=== PATIENT | male | born 1940 | race Caucasian/White ===

== ENCOUNTER → 2019-11-21 09:26 | Outpatient (BNVA) | payer MEDICARE, SELFPAY | PROVIDERS: Visit Provider Nurse Practitioner | DX: Z13.89 Encounter for screening for other disorder (principal) ==

== ENCOUNTER → 2019-12-24 07:54 | Outpatient (BNVA) | payer MEDICARE, SELFPAY | PROVIDERS: Visit Provider Internal Medicine Endocrinology, Diabetes & Metabolism | DX: E11.65 Type 2 diabetes mellitus with hyperglycemia (principal); E11.21 Type 2 diabetes mellitus with diabetic nephropathy; E11.42 Type 2 diabetes mellitus with diabetic polyneuropathy; E11.3599 Type 2 diabetes mellitus with proliferative diabetic retinopathy without macular edema, unspecified eye; Z79.4 Long term (current) use of insulin; E78.5 Hyperlipidemia, unspecified; E55.9 Vitamin D deficiency, unspecified; E03.9 Hypothyroidism, unspecified; E06.3 Autoimmune thyroiditis; I10 Essential (primary) hypertension; Z79.899 Other long term (current) drug therapy | CPT/HCPCS: 99212 ==

== ENCOUNTER 2019-12-26 09:51 | Outpatient (REF) | payer MEDICARE, SELFPAY ==
[2019-12-26 14:15] LABS: Hematocrit 36.3 % (42-52); Hemoglobin 12.2 g/dl (14.0-18.0); Mean Corpuscular HGB Conc 33.6 g/dl (31.0-36.0); Mean Corpuscular Hemoglobin 28.4 pg (27.0-33.0); Mean Corpuscular Volume 84.4 fL (80-98); Mean Platelet Volume 11.4 fL (9.4-12.4); Platelet Count 254 X10*3/uL (160-400); Red Cell Distribution Width 13.5 % (11.0-16.0); White Blood Count 6.7 X10*3/uL (4.8-10.8)
[2019-12-26 14:42] LABS: Alanine Aminotransferase < 6 U/L (0-40); Albumin Level 4.1 g/dL (3.5-5.0); Alkaline Phosphatase 70 U/L (39-117); Anion Gap 12 (12-20); Aspartate Amino Transferase 10 U/L (5-37); Bilirubin Total 0.2 mg/dL (0.0-1.0); Blood Urea Nitrogen 14 mg/dL (9-16); Calcium 9.1 mg/dL (8.4-10.2); Carbon Dioxide 30 mmol/L (22-29); Chloride 97 mmol/L (96-108); Cholesterol 113 mg/dL; Estimated Glomerular Filt Rate 40; Glucose Fasting 222 mg/dL (60-99); HDL Cholesterol 31 mg/dL; LDL Cholesterol Calculated 59 mg/dl; Sodium 134 mmol/L (135-145); Total Protein 7.3 g/dL (6.5-8.0); Triglycerides 115 mg/dL
[2019-12-26 14:52] LABS: Creatinine Urine 122.75 mg/dL; Microalbum/Creatinine Ratio Ur 40.7 ug/mg cr
[2019-12-26 15:09] LABS: Free T4 (Free Thyroxine) 1.06 ng/dL (0.71-1.85); Thyroid Stimulating Hormone 1.61 mIU/mL (0.32-4.0); Vitamin D 25-OH Total 29.8 ng/mL (>30)
[2019-12-26 15:29] LABS: Vitamin B12 290 pg/mL (200-900)
[2019-12-26 17:46] LABS: Estimated Average Glucose 335 mg/dL; Hemoglobin A1c % 13.3 %
[2019-12-27 07:47] LABS: LDL Cholesterol Direct 64 mg/dL (<100)
== END 2019-12-26 09:52 | disposition home or self-care (01) ==
LOC: HO.10HDL 09:51
PROVIDERS: Visit Provider Internal Medicine Endocrinology, Diabetes & Metabolism
DX: E11.65 Type 2 diabetes mellitus with hyperglycemia (principal)
CPT/HCPCS: 36415; 80053; 80061; 82043; 82306; 82607; 83036; 83721; 84439; 84443; 85027

== ENCOUNTER → 2020-03-25 09:10 | Outpatient (BNVA) | payer MEDICARE, SELFPAY | PROVIDERS: PCP Internal Medicine; Visit Provider Internal Medicine Endocrinology, Diabetes & Metabolism | DX: E11.65 Type 2 diabetes mellitus with hyperglycemia (principal); E11.42 Type 2 diabetes mellitus with diabetic polyneuropathy; Z79.4 Long term (current) use of insulin; E78.5 Hyperlipidemia, unspecified; E55.9 Vitamin D deficiency, unspecified; E03.8 Other specified hypothyroidism; E06.3 Autoimmune thyroiditis; I10 Essential (primary) hypertension | CPT/HCPCS: 82947; 99212 ==

== ENCOUNTER → 2020-04-21 07:39 | Outpatient (BNVA) | payer MEDICARE, SELFPAY | PROVIDERS: PCP Internal Medicine; Visit Provider Internal Medicine Endocrinology, Diabetes & Metabolism | DX: Z13.89 Encounter for screening for other disorder (principal) | CPT/HCPCS: Q3014 ==

== ENCOUNTER → 2020-07-24 08:48 | Outpatient (BNVA) | payer MEDICARE, SELFPAY | PROVIDERS: Visit Provider Orthopaedic Surgery | DX: M25.561 Pain in right knee (principal); M17.0 Bilateral primary osteoarthritis of knee; E11.65 Type 2 diabetes mellitus with hyperglycemia; E11.42 Type 2 diabetes mellitus with diabetic polyneuropathy; E66.9 Obesity, unspecified; E55.9 Vitamin D deficiency, unspecified; F10.10 Alcohol abuse, uncomplicated; F17.210 Nicotine dependence, cigarettes, uncomplicated; Z68.33 Body mass index [BMI] 33.0-33.9, adult; Z79.4 Long term (current) use of insulin | CPT/HCPCS: 20610; 99212; J1100 ==

== ENCOUNTER → 2020-08-12 10:58 | Outpatient (BNVA) | payer MEDICARE, SELFPAY | PROVIDERS: Visit Provider Internal Medicine Endocrinology, Diabetes & Metabolism | DX: E11.65 Type 2 diabetes mellitus with hyperglycemia (principal); E11.42 Type 2 diabetes mellitus with diabetic polyneuropathy; E78.5 Hyperlipidemia, unspecified; E55.9 Vitamin D deficiency, unspecified; E03.8 Other specified hypothyroidism; E06.3 Autoimmune thyroiditis; I10 Essential (primary) hypertension; Z79.4 Long term (current) use of insulin | CPT/HCPCS: 82947; 99212 ==

== ENCOUNTER → 2020-11-19 08:53 | Outpatient (BNVA) | payer MEDICARE, SELFPAY | PROVIDERS: PCP Internal Medicine; Visit Provider Nurse Practitioner Gerontology | DX: E11.65 Type 2 diabetes mellitus with hyperglycemia (principal); E11.42 Type 2 diabetes mellitus with diabetic polyneuropathy; E78.5 Hyperlipidemia, unspecified; E55.9 Vitamin D deficiency, unspecified; E03.8 Other specified hypothyroidism; E06.3 Autoimmune thyroiditis; I10 Essential (primary) hypertension; Z79.4 Long term (current) use of insulin | CPT/HCPCS: 82947; 83036; 99212 ==

== ENCOUNTER → 2021-02-22 11:01 | Outpatient (BNVA) | payer MEDICARE, SELFPAY | PROVIDERS: PCP Internal Medicine; Visit Provider Internal Medicine | DX: M54.50 Low back pain, unspecified (principal); G89.29 Other chronic pain | CPT/HCPCS: 99202 ==

== ENCOUNTER → 2021-06-08 09:40 | Outpatient (BNVA) | payer OTHER, SELFPAY | PROVIDERS: PCP Internal Medicine; Visit Provider Nurse Practitioner Gerontology | DX: E11.65 Type 2 diabetes mellitus with hyperglycemia (principal); E11.42 Type 2 diabetes mellitus with diabetic polyneuropathy; E78.5 Hyperlipidemia, unspecified; E55.9 Vitamin D deficiency, unspecified; E06.3 Autoimmune thyroiditis; E03.8 Other specified hypothyroidism; I10 Essential (primary) hypertension; Z79.4 Long term (current) use of insulin | CPT/HCPCS: 82947; 83036; Q3014 ==

== ENCOUNTER 2021-08-03 10:04 | Emergency (ER) | payer OTHER, SELFPAY ==
[2021-08-03] VITALS (12 sets, daily range): BP systolic 105–150; BP diastolic 52–80; PULSE 67–92; RESP 14–22; TEMP 36.6; O2SAT 88–98; BMI 31.6
--- NOTE | ~2021-08-03 | CT_ITS ---
EXAMINATION: CT BRAIN WITHOUT CONTRAST. CT ABDOMEN AND PELVIS WITHOUT CONTRAST. CLINICAL INFORMATION: Vomiting and constipation. AMS. COMPARISON: None TECHNIQUE: 5 mm thin axial and reformatted 2 mm thin sagittal and coronal images of brain were obtained. Subsequently axial 5 mm thin and reformatted 3 mm thin sagittal and coronal images of abdomen pelvis were obtained without contrast. DLP 1450. FINDINGS: Brain: There is no acute intra-axial, extra-axial bleed, masses or midline shift. There is no acute infarction evolution. The [place] to white matter difference is maintained. The lateral ventricles are symmetrical in size and configuration but enlarged. No abnormality seen in the posterior fossa. Bone windows reveal no calvarial abnormality. The scalp soft tissues are normal. Bilateral paranasal sinuses are well-aerated and clear. Abdomen and pelvis: The lung bases are clear. The heart size is normal. There are coronary artery calcifications present. Visualized liver is normal size, contour and density. No focal lesion or intrahepatic ductal dilatation seen. There are no radiopaque gallstones. Visualized spleen, pancreas and adrenal glands unremarkable. Both kidneys are normal size, shape and position. There is bilateral cortical exophytic renal cysts. No radiopaque renal calculi or hydronephrosis seen. There is mild bilateral perinephric stranding. The abdominal aorta is of normal caliber with mild arthroscopic calcification of the bifurcation. No abnormal size retroperitoneal lymph nodes or mass seen. There is a scattered stool, gas and diverticuli seen throughout the colon without diverticulitis. The appendix is normal caliber. Abdominal wall appears unremarkable. Imaging through the pelvis reveals unremarkable urinary bladder. The prostate gland is normal. No free fluid or free air seen. No abnormal pelvic lymph nodes. Bone windows reveal no lytic or sclerotic process. There is mild degenerative disc changes with vacuum disc phenomena L5-S1 disc level. Likely grade 1 anterior subluxation L5 over S1 is noted. CT/CT abdomen pelvis wo con IMPRESSION: No acute intracranial process seen No acute process seen in the abdomen. Scattered colonic diverticulosis without diverticulitis Bilateral exophytic renal cysts but no radiopaque renal calculi or hydronephrosis Suspect small hiatal hernia.
--- NOTE | ~2021-08-03 | XR_ITS ---
EXAMINATION: XR CHEST CLINICAL INFORMATION: AMS. COMPARISON: Chest 01/13/2014 TECHNIQUE: Frontal view of the chest was obtained. FINDINGS: No significant abnormality is noted involving the heart, lungs, mediastinum, bony thorax or soft tissues. XR/XR chest 1V IMPRESSION: Unremarkable chest examination.
--- NOTE | 2021-08-03 10:21 | ECG_ITS ---
Test Reason : n/v Blood Pressure : / mmHG Vent. Rate : 070 BPM Atrial Rate : 070 BPM P-R Int : 174 ms QRS Dur : 078 ms QT Int : 416 ms P-R-T Axes : 057 011 033 degrees QTc Int : 449 ms Normal sinus rhythm Normal ECG When compared to the previous EKG of No significant changes seen Referred By: Soheila Holland Electronically Signed By:Sterling Ruiz
--- NOTE | 2021-08-03 10:26 | ED_ITS ---
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 At the appointment he became unresponsive and was given IN narcan 4mg and he woke up immediately without issue now c/o vomiting. MD complaint: altered mental status, decreased responsiveness and intoxication (given narcan at [facility]) Onset (ago): minute(s) (just prior to arrival ) Timing confirmed by: caregiver Severity: moderate Consistency of symptoms: constant Context: COPD and other (takes oxycodone PRN as needed. ) Associated symptoms: nausea/vomiting Treatments prior to arrival: other (4mg IN narcan) Related Data Home Medications Medication Instructions Recorded Confirmed aspirin 81 mg tablet,delayed 81 mg PO BEDTIME 11/20/19 06/08/21 release atorvastatin 20 mg tablet 20 mg PO DAILY 11/20/19 06/08/21 blood pressure test kit-large #1 11/20/19 11/19/20 blood sugar diagnostic #10 ea 11/20/19 11/19/20 lancets 33 gauge #100 11/20/19 11/19/20 lisinopril 5 mg tablet 5 mg PO DAILY 11/20/19 06/08/21 pen needle, diabetic 31 gauge x #1,200 11/20/19 11/19/20 5/16 polyethylene glycol 3350 17 17 g PO DAILY PRN constipation 11/20/19 11/19/20 gram/dose oral powder sennosides 8.6 mg tablet 17.2 mg PO DAILY 11/20/19 02/22/21 simethicone 180 mg capsule 180 mg PO TID 11/20/19 02/22/21 umeclidinium 62.5 mcg/actuation 0 inh inhalation 11/20/19 11/19/20 blister powder for inhalation docusate sodium 100 mg capsule 100 mg PO 03/25/20 02/22/21 pregabalin 150 mg capsule 150 mg PO DAILY 03/25/20 02/22/21 dexlansoprazole 60 mg 60 mg PO DAILY 04/21/20 02/22/21 capsule,biphase delayed release fluoxetine 40 mg capsule 40 mg PO DAILY 04/21/20 02/22/21 fluticasone propionate 110 110 mcg inhalation BID 04/21/20 02/22/21 mcg/actuation HFA aerosol inhaler fluticasone propionate 50 2 spray intranasal DAILY PRN 04/21/20 02/22/21 mcg/actuation nasal spray,suspension diltiazem HCl 180 mg 180 mg PO DAILY 11/19/20 02/22/21 capsule,extended release 24 hr (Cartia XT) Previous Rx's Medication Instructions Recorded pen needle, diabetic 32 gauge x #200 ea 08/12/20 (BD Asuncion 2nd Gen Pen Needle) levothyroxine 112 mcg tablet 112 mcg PO DAILY 90 days #90 tabs 02/11/21 glucagon 3 mg/actuation nasal 3 mg intranasal ONCE unresponsive 06/08/21 spray (Baqsimi) hypoglycemia 30 days #2 ea insulin aspar prot-insulin aspart See Rx Instructions subcut BID 30 06/08/21 100 unit/mL (70-30) subcutaneous days #30 mL pen (Novolog Mix 70-30FlexPen U-100) cholecalciferol (vitamin D3) 50 50 mcg PO DAILY 90 days #90 caps 06/28/21 mcg (2,000 unit) capsule linagliptin 5 mg tablet 5 mg PO DAILY 90 days #90 tabs 07/30/21 Allergies Allergy/AdvReac Type Severity Reaction Status Date / Time No Known Allergies Allergy Verified 06/08/21 10:15 Review of Systems Review of Systems: Constitutional : No Weight loss, No Fever, No Chills ENT/Mouth : No sore throat, No Rhinorrhea Eyes: No Swelling, No Redness Cardiovascular : No Chest Pain, No SOB, NoEdema Respiratory : No Cough, No Sputum, No Wheezing Gastrointestinal : Positive Nausea, Positive Vomiting, no Diarrhea, positive abdominal Pain, No Hematochezia, No Melena Genitourinary : No Dysuria, No Urinary Frequency, No Hematuria, No Urgency Musculoskeletal : No joint pain, No Myalgias, No Joint Swelling, pos back pain Skin : No Skin Lesions, No rash Neuro : No Weakness, No Numbness, No Dizziness, No Headache, pos confusion Psych : No Anxiety/Panic, No Depression Heme/Lymph: No Bruising, No Lymphadenopathy Endocrine : No Polyuria, No Polydipsia All other systems reviewed and are negative. [facility] Past Medical History Attestation statement: The following information was validated with the patient. Medical History Alcohol abuse CKD (chronic kidney disease) stage 3, GFR 30-59 ml/min COPD (chronic obstructive pulmonary disease) Diabetes type 2, uncontrolled History of Helicobacter pylori infection HTN (hypertension) IBS (irritable bowel syndrome) Internal hemorrhoid Surgical History Hx of colonoscopy (03/2013) Hx of cystoscopy (~2006) Hx of right cataract extraction Family History Family History Father No problems noted. 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 Physical Exam ED Vital Signs: Vital Signs - 24 hr 08/03/21 10:27 08/03/21 10:50 08/03/21 11:45 Temperature Pulse Rate 79 78 72 Respiratory Rate 18 22 H 18 Blood Pressure 149/70 H 137/63 105/80 Pulse Oximetry 94 98 92 Oxygen Delivery Method Room Air Room Air Room Air Oxygen Flow Rate 08/03/21 12:09 08/03/21 12:42 08/03/21 12:51 Temperature Pulse Rate 68 67 75 Respiratory Rate 20 14 19 Blood Pressure 130/63 Pulse Oximetry 88 L Oxygen Delivery Method Room Air Oxygen Flow Rate 08/03/21 13:16 08/03/21 15:38 08/03/21 15:52 Temperature 97.9 F Pulse Rate 84 85 84 Respiratory Rate 14 16 16 Blood Pressure 124/61 110/52 L 124/63 Pulse Oximetry 88 L 95 94 Oxygen Delivery Method Room Air Nasal Cannula Room Air Oxygen Flow Rate 2 BMI result Body Mass Index 31.6 Appearance: Alert. Oriented X2. No acute distress. Eyes: Pupils pinpoint ENT: Pharynx normal. Neck: Normal inspection. Neck supple. CVS: Normal heart rate and rhythm. Pulses normal. Respiratory: No respiratory distress. Breath sounds very diminished Abdomen: Soft and non-tender. Skin: Skin warm and dry. Normal skin color. Normal skin turgor. Extremities: No lower extremity edema. Neuro: Oriented X 2. No motor deficit. No sensory deficit. Course Course Course Narrative: CT abdomen - no acute process, mild constipation CT head - no ICH CXR negative 89% on RA, very sleepy, repeat neb ordered - narcan 0.4mg ordered as well placed on supplemental O2 - ABG ordered review of notes shows that patient did see pain management but stated they would not fill Rx for him as he broke pain contract in the past pH normal - no retention. pinpoint pupils repeat 1mg narcan ordered, tox negative, head CT negative, patient looks better, eating a sandwhich and drinking coffee will continue to observe if he does well the next 2 hours stable for DC MDM - Altered Mental Status MDM Narrative Medical decision making narrative: 81 yo male with hx of DM, COPD, hypothyroidism, asthma, constipation, chronic back pain for which he is Rx'd daily PRN oxycodone 5mg BID and suspected overdos e at [facility] for which he responded to IN narcan - he is now confused with vomiting. At this time he is confused and has pinpoint pupils - will obtain labs, CT head for ICH, CT abdomen given c/o abdominal pain, drug screen and observation. He is very diminished neb ordered. Dispo per results and findings. Lab Data Result diagrams: 08/03/21 10:54 08/03/21 10:54 Labs: Lab Results 08/03/21 08/03/21 08/03/21 Range/Units 10:46 10:49 10:54 WBC (4.8-10.8) X10*3/uL RBC (4.60-5.80) X10*6/uL Hgb (14.0-18.0) g/dl Hct (42.0-52.0) % MCV (80.0-98.0) fL MCH (27.0-33.0) pg MCHC (31.0-36.0) g/dl RDW (11.0-16.0) % Plt Count (160-400) X10*3/uL MPV (9.4-12.4) fL Immature Gran % (Auto) (0.0-0.4) % Neut % (Auto) (45-73) % Lymph % (Auto) (20-40) % [place] % (Auto) (2-11) % Eos % (Auto) (0-4) % Baso % (Auto) (0-2) % Lymph # (Auto) (1.2-4.9) X10*3/uL [place] # (Auto) (0.1-1.2) X10*3/uL Eos # (Auto) (0.0-0.4) X10*3/uL Baso # (Auto) (0.0-0.2) X10*3/uL Abs Immat Gran (auto) (0.00-0.03) X10*3/uL Absolute Neuts (auto) (2.0-8.3) x10*3/uL Absolute Nucleated RBC (0.0-0.012) X10*3/uL Nucleated RBC % (auto) (0.0-0.2) /100WBC PT (9.9-13.0) SEC INR (0.9-1.1) O2 Saturation % ABG pH at Pt Temp (7.35-7.45) ABG pCO2 at Pt Temp (32-45) mmHg ABG pO2 at Pt Temp (83-108) mmHg ABG HCO3 (22-26) mmol/L ABG Base Excess (Actual) mmol/L VBG pH (7.32-7.43) VBG pCO2 mmHg VBG pO2 mmHg VBG HCO3 (22-26) mmol/L VBG O2 Saturation % VBG Base Excess mmol/L Sodium (135-145) mmol/L Potassium (3.3-5.1) mmol/L Chloride (96-108) mmol/L Carbon Dioxide (22-29) mmol/L Anion Gap (12-20) BUN (9-16) mg/dL Creatinine (0.5-1.4) mg/dL Estim Creat Clear Calc Estimated GFR POC Glucose 229 H (60-115) mg/dL Random Glucose (60-115) mg/dL Calcium (8.4-10.2) mg/dL Magnesium (1.6-2.6) mg/dL Total Bilirubin (0.0-1.0) mg/dL Direct Bilirubin (0.0-0.5) mg/dL AST (5-37) U/L ALT (0-40) U/L Alkaline Phosphatase (39-117) U/L Ammonia 14 (13-55) umol/L Total Protein (6.5-8.0) g/dL Albumin (3.5-5.0) g/dL Urine Color Urine Appearance Urine pH (5.0-8.0) Ur Specific [place] (1.005-1.025) Urine Protein (NEG-TRACE) MG/DL Urine Glucose (UA) (NEG) MG/DL Urine Ketones (NEG) MG/DL Urine Blood (NEG) Urine Nitrite (NEG) Ur Leukocyte Esterase (NEG) Urine RBC (0) /HPF Urine WBC (0-4) /HPF Ur Squamous Epith Cells /LPF Urine Bacteria /LPF Urine Mucus /LPF Urine Opiates Screen (Not Detect) Urine Fentanyl Screen (Not Detect) Ur Barbiturates Screen (Not Detect) Ur Phencyclidine Scrn (Not Detect) Ur Amphetamines Screen (Not Detect) U Benzodiazepines Scrn (Not Detect) Urine Cocaine Screen (Not Detect) U Marijuana (THC) Screen (Not Detect) COVID-19 (JAMEEL) Negative (Negative) COVID-19 Clin Com See Note 08/03/21 08/03/21 08/03/21 Range/Units 10:54 10:54 10:54 WBC 10.5 (4.8-10.8) X10*3/uL RBC 4.20 L (4.60-5.80) X10*6/uL Hgb 11.6 L (14.0-18.0) g/dl Hct 35.5 L (42.0-52.0) % MCV 84.5 (80.0-98.0) fL MCH 27.6 (27.0-33.0) pg MCHC 32.7 (31.0-36.0) g/dl RDW 14.2 (11.0-16.0) % Plt Count 239 (160-400) X10*3/uL MPV 10.5 (9.4-12.4) fL Immature Gran % (Auto) 0.3 (0.0-0.4) % Neut % (Auto) 61.3 (45-73) % Lymph % (Auto) 29.7 (20-40) % [place] % (Auto) 6.5 (2-11) % Eos % (Auto) 1.3 (0-4) % Baso % (Auto) 0.9 (0-2) % Lymph # (Auto) 3.1 (1.2-4.9) X10*3/uL [place] # (Auto) 0.7 (0.1-1.2) X10*3/uL Eos # (Auto) 0.1 (0.0-0.4) X10*3/uL Baso # (Auto) 0.1 (0.0-0.2) X10*3/uL Abs Immat Gran (auto) 0.03 (0.00-0.03) X10*3/uL Absolute Neuts (auto) 6.5 (2.0-8.3) x10*3/uL Absolute Nucleated RBC 0.000 (0.0-0.012) X10*3/uL Nucleated RBC % (auto) 0.0 (0.0-0.2) /100WBC PT 11.6 (9.9-13.0) SEC INR 1.0 (0.9-1.1) O2 Saturation % ABG pH at Pt Temp (7.35-7.45) ABG pCO2 at Pt Temp (32-45) mmHg ABG pO2 at Pt Temp (83-108) mmHg ABG HCO3 (22-26) mmol/L ABG Base Excess (Actual) mmol/L VBG pH (7.32-7.43) VBG pCO2 mmHg VBG pO2 mmHg VBG HCO3 (22-26) mmol/L VBG O2 Saturation % VBG Base Excess mmol/L Sodium 137 (135-145) mmol/L Potassium 4.7 (3.3-5.1) mmol/L Chloride 101 (96-108) mmol/L Carbon Dioxide 26 (22-29) mmol/L Anion Gap 15 (12-20) BUN 18 H (9-16) mg/dL Creatinine 1.99 H (0.5-1.4) mg/dL Estim Creat Clear Calc 30.4 Estimated GFR 32 POC Glucose (60-115) mg/dL Random Glucose 244 H (60-115) mg/dL Calcium 10.1 D (8.4-10.2) mg/dL Magnesium 1.9 (1.6-2.6) mg/dL Total Bilirubin 0.2 (0.0-1.0) mg/dL Direct Bilirubin < 0.2 (0.0-0.5) mg/dL AST 10 (5-37) U/L ALT < 6 (0-40) U/L Alkaline Phosphatase 88 D (39-117) U/L Ammonia (13-55) umol/L Total Protein 8.2 H (6.5-8.0) g/dL Albumin 4.6 (3.5-5.0) g/dL Urine Color Urine Appearance Urine pH (5.0-8.0) Ur Specific [place] (1.005-1.025) Urine Protein (NEG-TRACE) MG/DL Urine Glucose (UA) (NEG) MG/DL Urine Ketones (NEG) MG/DL Urine Blood (NEG) Urine Nitrite (NEG) Ur Leukocyte Esterase (NEG) Urine RBC (0) /HPF Urine WBC (0-4) /HPF Ur Squamous Epith Cells /LPF Urine Bacteria /LPF Urine Mucus /LPF Urine Opiates Screen (Not Detect) Urine Fentanyl Screen (Not Detect) Ur Barbiturates Screen (Not Detect) Ur Phencyclidine Scrn (Not Detect) Ur Amphetamines Screen (Not Detect) U Benzodiazepines Scrn (Not Detect) Urine Cocaine Screen (Not Detect) U Marijuana (THC) Screen (Not Detect) COVID-19 (JAMEEL) (Negative) COVID-19 Clin Com 08/03/21 08/03/21 08/03/21 Range/Units 10:57 13:34 14:25 WBC (4.8-10.8) X10*3/uL RBC (4.60-5.80) X10*6/uL Hgb (14.0-18.0) g/dl Hct (42.0-52.0) % MCV (80.0-98.0) fL MCH (27.0-33.0) pg MCHC (31.0-36.0) g/dl RDW (11.0-16.0) % Plt Count (160-400) X10*3/uL MPV (9.4-12.4) fL Immature Gran % (Auto) (0.0-0.4) % Neut % (Auto) (45-73) % Lymph % (Auto) (20-40) % [place] % (Auto) (2-11) % Eos % (Auto) (0-4) % Baso % (Auto) (0-2) % Lymph # (Auto) (1.2-4.9) X10*3/uL [place] # (Auto) (0.1-1.2) X10*3/uL Eos # (Auto) (0.0-0.4) X10*3/uL Baso # (Auto) (0.0-0.2) X10*3/uL Abs Immat Gran (auto) (0.00-0.03) X10*3/uL Absolute Neuts (auto) (2.0-8.3) x10*3/uL Absolute Nucleated RBC (0.0-0.012) X10*3/uL Nucleated RBC % (auto) (0.0-0.2) /100WBC PT (9.9-13.0) SEC INR (0.9-1.1) O2 Saturation 92.0 % ABG pH at Pt Temp 7.37 (7.35-7.45) ABG pCO2 at Pt Temp 27 L (32-45) mmHg ABG pO2 at Pt Temp 71 L (83-108) mmHg ABG HCO3 16 L (22-26) mmol/L ABG Base Excess (Actual) -7.1 mmol/L VBG pH 7.26 L (7.32-7.43) VBG pCO2 53 mmHg VBG pO2 36 mmHg VBG HCO3 24 (22-26) mmol/L VBG O2 Saturation 50.0 % VBG Base Excess -2.9 mmol/L Sodium (135-145) mmol/L Potassium (3.3-5.1) mmol/L Chloride (96-108) mmol/L Carbon Dioxide (22-29) mmol/L Anion Gap (12-20) BUN (9-16) mg/dL Creatinine (0.5-1.4) mg/dL Estim Creat Clear Calc Estimated GFR POC Glucose (60-115) mg/dL Random Glucose (60-115) mg/dL Calcium (8.4-10.2) mg/dL Magnesium (1.6-2.6) mg/dL Total Bilirubin (0.0-1.0) mg/dL Direct Bilirubin (0.0-0.5) mg/dL AST (5-37) U/L ALT (0-40) U/L Alkaline Phosphatase (39-117) U/L Ammonia (13-55) umol/L Total Protein (6.5-8.0) g/dL Albumin (3.5-5.0) g/dL Urine Color YELLOW Urine Appearance HAZY Urine pH 5.5 (5.0-8.0) Ur Specific [place] 1.025 (1.005-1.025) Urine Protein TRACE (NEG-TRACE) MG/DL Urine Glucose (UA) >=1000 H (NEG) MG/DL Urine Ketones NEG (NEG) MG/DL Urine Blood NEG (NEG) Urine Nitrite NEG (NEG) Ur Leukocyte Esterase NEG (NEG) Urine RBC 0-2 (0) /HPF Urine WBC 0-2 (0-4) /HPF Ur Squamous Epith Cells 1+ /LPF Urine Bacteria NONE /LPF Urine Mucus TRACE /LPF Urine Opiates Screen (Not Detect) Urine Fentanyl Screen (Not Detect) Ur Barbiturates Screen (Not Detect) Ur Phencyclidine Scrn (Not Detect) Ur Amphetamines Screen (Not Detect) U Benzodiazepines Scrn (Not Detect) Urine Cocaine Screen (Not Detect) U Marijuana (THC) Screen (Not Detect) COVID-19 (JAMEEL) (Negative) COVID-19 Clin Com 08/03/21 Range/Units 14:25 WBC (4.8-10.8) X10*3/uL RBC (4.60-5.80) X10*6/uL Hgb (14.0-18.0) g/dl Hct (42.0-52.0) % MCV (80.0-98.0) fL MCH (27.0-33.0) pg MCHC (31.0-36.0) g/dl RDW (11.0-16.0) % Plt Count (160-400) X10*3/uL MPV (9.4-12.4) fL Immature Gran % (Auto) (0.0-0.4) % Neut % (Auto) (45-73) % Lymph % (Auto) (20-40) % [place] % (Auto) (2-11) % Eos % (Auto) (0-4) % Baso % (Auto) (0-2) % Lymph # (Auto) (1.2-4.9) X10*3/uL [place] # (Auto) (0.1-1.2) X10*3/uL Eos # (Auto) (0.0-0.4) X10*3/uL Baso # (Auto) (0.0-0.2) X10*3/uL Abs Immat Gran (auto) (0.00-0.03) X10*3/uL Absolute Neuts (auto) (2.0-8.3) x10*3/uL Absolute Nucleated RBC (0.0-0.012) X10*3/uL Nucleated RBC % (auto) (0.0-0.2) /100WBC PT (9.9-13.0) SEC INR (0.9-1.1) O2 Saturation % ABG pH at Pt Temp (7.35-7.45) ABG pCO2 at Pt Temp (32-45) mmHg ABG pO2 at Pt Temp (83-108) mmHg ABG HCO3 (22-26) mmol/L ABG Base Excess (Actual) mmol/L VBG pH (7.32-7.43) VBG pCO2 mmHg VBG pO2 mmHg VBG HCO3 (22-26) mmol/L VBG O2 Saturation % VBG Base Excess mmol/L Sodium (135-145) mmol/L Potassium (3.3-5.1) mmol/L Chloride (96-108) mmol/L Carbon Dioxide (22-29) mmol/L Anion Gap (12-20) BUN (9-16) mg/dL Creatinine (0.5-1.4) mg/dL Estim Creat Clear Calc Estimated GFR POC Glucose (60-115) mg/dL Random Glucose (60-115) mg/dL Calcium (8.4-10.2) mg/dL Magnesium (1.6-2.6) mg/dL Total Bilirubin (0.0-1.0) mg/dL Direct Bilirubin (0.0-0.5) mg/dL AST (5-37) U/L ALT (0-40) U/L Alkaline Phosphatase (39-117) U/L Ammonia (13-55) umol/L Total Protein (6.5-8.0) g/dL Albumin (3.5-5.0) g/dL Urine Color Urine Appearance Urine pH (5.0-8.0) Ur Specific [place] (1.005-1.025) Urine Protein (NEG-TRACE) MG/DL Urine Glucose (UA) (NEG) MG/DL Urine Ketones (NEG) MG/DL Urine Blood (NEG) Urine Nitrite (NEG) Ur Leukocyte Esterase (NEG) Urine RBC (0) /HPF Urine WBC (0-4) /HPF Ur Squamous Epith Cells /LPF Urine Bacteria /LPF Urine Mucus /LPF Urine Opiates Screen Not Detected (Not Detect) Urine Fentanyl Screen Not Detected (Not Detect) Ur Barbiturates Screen Not Detected (Not Detect) Ur Phencyclidine Scrn Not Detected (Not Detect) Ur Amphetamines Screen Not Detected (Not Detect) U Benzodiazepines Scrn Not Detected (Not Detect) Urine Cocaine Screen Not Detected (Not Detect) U Marijuana (THC) Screen Not Detected (Not Detect) COVID-19 (JAMEEL) (Negative) COVID-19 Clin Com ECG Data ECG #1: Attestation: I personally reviewed and interpreted this ECG as follows: ECG interpretation date: 08/03/21 ECG interpretation time: 10:43 Interpretation: Rate: 70 Rhythm: NSR [place]: normal Normal P waves. Normal SHARMIN. Normal QRS complex. ST T wave : non-specificl no GAURI qTC: normal prior studies: no acute ischemia The study has been interpreted contemporaneously by me. Discharge Plan Discharge Clinical Impression: Overdose, COPD (chronic obstructive pulmonary disease) Patient Disposition: Still a Patient Prescriptions: No Action levothyroxine 112 mcg tablet 112 mcg PO DAILY 90 Days Qty: 90 3RF cholecalciferol (vitamin D3) 50 mcg (2,000 unit) capsule 50 mcg PO DAILY 90 Days Qty: 90 2RF linagliptin 5 mg tablet 5 mg PO DAILY 90 Days Qty: 90 2RF Rx Instructions: NO MORE REFILLS UNLESS APPOINTMENT SCHEDULED diltiazem HCl [Cartia XT] 180 mg capsule,extended release 24hr 180 mg PO DAILY Incruse Ellipta 62.5 mcg/actuation blister with device 0 inh inhalation (DME) lancets 33 gauge misc See Rx Instructions .ROUTE .MEDSUPPLY Qty: 100 Rx Instructions: As directed aspirin 81 mg tablet,delayed release (DR/EC) 81 mg PO BEDTIME (DME) pen needle, diabetic 31 gauge x 5/16 needle See Rx Instructions .ROUTE .MEDSUPPLY Qty: 1200 Rx Instructions: As directed lisinopril 5 mg tablet 5 mg PO DAILY (DME) FreeStyle Lite Strips Strip See Rx Instructions Not Applicable .MEDSUPPLY Qty: 10 Rx Instructions: As directed sennosides 8.6 mg tablet 17.2 mg PO DAILY (DME) blood pressure test kit-large Kit See Rx Instructions .ROUTE DIRECTED Qty: 1 Rx Instructions: As directed polyethylene glycol 3350 17 gram/dose powder 17 g PO DAILY PRN (Reason: constipation) atorvastatin 20 mg tablet 20 mg PO DAILY simethicone 180 mg capsule 180 mg PO TID docusate sodium 100 mg capsule 100 mg PO pregabalin 150 mg capsule 150 mg PO DAILY dexlansoprazole 60 mg capsule,biphase delayed releas 60 mg PO DAILY fluoxetine 40 mg capsule 40 mg PO DAILY fluticasone propionate 110 mcg/actuation HFA aerosol inhaler 110 mcg inhalation BID fluticasone propionate 50 mcg/actuation spray,suspension 2 spray intranasal DAILY PRN (DME) pen needle, diabetic [BD Asuncion 2nd Gen Pen Needle] 32 gauge x 5/32 needle See Rx Instructions .MEDSUPPLY Qty: 200 4RF Rx Instructions: twice a day insulin asp prt-insulin aspart [Novolog Mix 70-30FlexPen U-100] 100 unit/mL (70-30) insulin pen See Rx Instructions subcut BID 30 Days Qty: 30 6RF Rx Instructions: 60 units before breakfast, 30 units before dinner subcut 2 times a day; Baqsimi 3 mg/actuation spray,non-aerosol 3 mg intranasal ONCE 30 Days Qty: 2 6RF Rx Instructions: Murray once for severe hypoglycemia when patient cannot self-treat with glucose. Afterwards turn on side. May repeat after 15 minutes if patient does not respond.
--- NOTE | 2021-08-03 10:45 | PC.NURSE ---
pt vomiting at this time, also is reporting upper abd pain, pt alert but appears drowsy is slow in answering questions, pupils pinpoint, ls diminished on the left side but also pt not taking good breaths in during assessments, oxygen level will flocculate from 91-97% on room air, pt color is ashen in appearance.
[2021-08-03] MEDS: ondansetron HCL 4 MG/2 ML VIAL IVPUSH (10:46)
[2021-08-03 10:50] LABS: Glucose, Whole Blood 229 mg/dL (60-115)
[2021-08-03 10:59] LABS: MANUAL DIFF FLAG NO
[2021-08-03 11:01] LABS: Basophils Absolute Auto 0.1 X10*3/uL (0.0-0.2); Basophils Percent Auto 0.9 % (0-2); Eosinophils Absolute Auto 0.1 X10*3/uL (0.0-0.4); Eosinophils Percent Auto 1.3 % (0-4); Hematocrit 35.5 % (42.0-52.0); Hemoglobin 11.6 g/dl (14.0-18.0); Imm Gran Abs Auto 0.03 X10*3/uL (0.00-0.03); Imm Gran Pct Auto 0.3 % (0.0-0.4); Lymphocytes Absolute Auto 3.1 X10*3/uL (1.2-4.9); Lymphocytes Percent Auto 29.7 % (20-40); Mean Corpuscular HGB Conc 32.7 g/dl (31.0-36.0); Mean Corpuscular Hemoglobin 27.6 pg (27.0-33.0); Mean Corpuscular Volume 84.5 fL (80.0-98.0); Mean Platelet Volume 10.5 fL (9.4-12.4); Monocytes Absolute Auto 0.7 X10*3/uL (0.1-1.2); Monocytes Percent Auto 6.5 % (2-11); Neutrophils Absolute Auto 6.5 x10*3/uL (2.0-8.3); Neutrophils Percent Auto 61.3 % (45-73); Platelet Count 239 X10*3/uL (160-400); Red Cell Distribution Width 14.2 % (11.0-16.0); White Blood Count 10.5 X10*3/uL (4.8-10.8)
[2021-08-03 11:02] LABS: Venous Blood Gas Refer to POC result
[2021-08-03 11:02] LABS: VBG Base Excess -2.9 mmol/L; VBG HCO3 24 mmol/L (22-26); VBG pCO2 53 mmHg; VBG pH 7.26 (7.32-7.43); VBG pO2 36 mmHg
[2021-08-03 11:06] LABS: Prothrombin Time 11.6 SEC (9.9-13.0)
[2021-08-03 11:15] LABS: Ammonia 14 umol/L (13-55)
[2021-08-03 11:18] LABS: COVID-19 Test Negative (Negative); IDNOW Serial# 08D9AD1C
[2021-08-03 11:24] LABS: Alanine Aminotransferase < 6 U/L (0-40); Albumin Level 4.6 g/dL (3.5-5.0); Alkaline Phosphatase 88 U/L (39-117); Anion Gap 15 (12-20); Aspartate Amino Transferase 10 U/L (5-37); Bilirubin Direct < 0.2 mg/dL (0.0-0.5); Bilirubin Total 0.2 mg/dL (0.0-1.0); Blood Urea Nitrogen 18 mg/dL (9-16); Calcium 10.1 mg/dL (8.4-10.2); Carbon Dioxide 26 mmol/L (22-29); Chloride 101 mmol/L (96-108); Creatinine Clr Calc Pharmacy 30.4; Estimated Glomerular Filt Rate 32; Glucose Random 244 mg/dL (60-115); Magnesium 1.9 mg/dL (1.6-2.6); Potassium 4.7 mmol/L (3.3-5.1); Sodium 137 mmol/L (135-145); Total Protein 8.2 g/dL (6.5-8.0)
[2021-08-03] MEDS: Albuterol/Iprat 2.5/0.5MG 3 ML AMPUL.NEB INHALE (12:08)
[2021-08-03] MEDS: Naloxone HCl 0.4 MG/ML VIAL IVPUSH (12:39)
--- NOTE | 2021-08-03 12:40 | PC.NURSE ---
pt very sleepy, sating at 88% on room air, pinpoint give narcan ns on the monitor
[2021-08-03] MEDS: Albuterol Sulfate (0.083%) 2.5 MG/3 ML VIAL.NEB INHALE (12:49)
--- NOTE | 2021-08-03 13:16 | PC.NURSE ---
pt oxygen level continuos on dropping even after the narcan, 88% on room air, pt put on nasal cannual 2l
[2021-08-03] MEDS: methylPREDNISolone Sod Succ 125 MG/2 ML VIAL IVPUSH (13:19)
[2021-08-03 13:41] LABS: ABG Base Excess -7.1 mmol/L; ABG HCO3 16 mmol/L (22-26); ABG pCO2 27 mmHg (32-45); ABG pH 7.37 (7.35-7.45); ABG pO2 71 mmHg (83-108)
[2021-08-03 14:43] LABS: Appearance Urine HAZY; Color Urine YELLOW; Glucose Urine UA >=1000 MG/DL (NEG); Leukocyte Esterase Urine NEG (NEG); Nitrite Urine NEG (NEG); PH 5.5 (5.0-8.0); Specific Gravity - Urine 1.025 (1.005-1.025); Urine Blood NEG (NEG); Urine Ketones NEG (NEG); Urine Protein TRACE MG/DL (NEG-TRACE)
[2021-08-03 14:48] LABS: RBC Urine 0-2 /HPF (0); WBC Urine 0-2 /HPF (0-4)
[2021-08-03 14:49] LABS: Mucus Urine TRACE /LPF; Squamous Epithelial Cell Urine 1+ /LPF
[2021-08-03 14:58] LABS: Amphetamine Screen Urine Not Detected (Not Detect); Barbiturates, Urine Not Detected (Not Detect); Benzodiazepines Screen Urine Not Detected (Not Detect); Cannabinoid Screen Urine Not Detected (Not Detect); Cocaine Screen Urine Not Detected (Not Detect); Fentanyl, urine Not Detected (Not Detect); Opiate Screen Urine Not Detected (Not Detect); Phencyclidine Screen Urine Not Detected (Not Detect)
[2021-08-03 15:05] LABS: ABG Refer to POC result
[2021-08-03] MEDS: Naloxone HCl 2 MG/2 ML SYRINGE 1 MG IVPUSH (16:04)
== END 2021-08-03 19:37 | disposition home or self-care (01) ==
PROVIDERS: Emergency Provider Emergency Medicine; PCP Internal Medicine
DX: T40.0X1A Poisoning by opium, accidental (unintentional), initial encounter (principal); R40.4 Transient alteration of awareness; Y92.531 Health care provider office as the place of occurrence of the external cause; J44.9 Chronic obstructive pulmonary disease, unspecified; R11.2 Nausea with vomiting, unspecified; Z20.822 Contact with and (suspected) exposure to COVID-19; E11.22 Type 2 diabetes mellitus with diabetic chronic kidney disease; I12.9 Hypertensive chronic kidney disease with stage 1 through stage 4 chronic kidney disease, or unspecified chronic kidney disease; N18.30 Chronic kidney disease, stage 3 unspecified; G89.29 Other chronic pain; M54.9 Dorsalgia, unspecified; E78.5 Hyperlipidemia, unspecified; Z79.891 Long term (current) use of opiate analgesic; Z79.02 Long term (current) use of antithrombotics/antiplatelets; Z79.4 Long term (current) use of insulin; Z79.899 Other long term (current) drug therapy; Z79.82 Long term (current) use of aspirin
CPT/HCPCS: 36415; 70450; 71045; 74176; 80048; 80076; 80307; 81001; 82140; 82803; 82947; 83735; 85025; 85610; 87635; 93005; 94640; 96374; 96375; 96376; 99284; J2405; J2930

== ENCOUNTER 2021-08-24 10:25 | Outpatient (REF) | payer OTHER, SELFPAY ==
[2021-08-24 14:12] LABS: Vitamin B12 226 pg/mL (200-900)
[2021-08-24 14:13] LABS: Free T4 (Free Thyroxine) 1.02 ng/dL (0.71-1.85); Thyroid Stimulating Hormone 1.02 uIU/mL (0.32-4.0); Vitamin D 25-OH Total 37.9 ng/mL (>30)
[2021-08-24 14:21] LABS: Alanine Aminotransferase < 6 U/L (0-40); Albumin Level 4.2 g/dL (3.5-5.0); Alkaline Phosphatase 86 U/L (39-117); Anion Gap 12 (12-20); Aspartate Amino Transferase 11 U/L (5-37); Bilirubin Total 0.3 mg/dL (0.0-1.0); Blood Urea Nitrogen 17 mg/dL (9-16); Calcium 9.6 mg/dL (8.4-10.2); Carbon Dioxide 28 mmol/L (22-29); Chloride 104 mmol/L (96-108); Cholesterol 148 mg/dL; Estimated Glomerular Filt Rate 35; Glucose Fasting 198 mg/dL (60-99); HDL Cholesterol 38 mg/dL; LDL Cholesterol Calculated 76 mg/dl; Potassium 5.2 mmol/L (3.3-5.1); Sodium 139 mmol/L (135-145); Total Protein 7.3 g/dL (6.5-8.0); Triglycerides 173 mg/dL
== END 2021-08-24 10:26 | disposition home or self-care (01) ==
LOC: HO.LAB 10:25
PROVIDERS: Absent Provider Psychiatry & Neurology Neurology; PCP Internal Medicine; Visit Provider Nurse Practitioner Gerontology
DX: G30.9 Alzheimer's disease, unspecified (principal); E11.65 Type 2 diabetes mellitus with hyperglycemia; E55.9 Vitamin D deficiency, unspecified
CPT/HCPCS: 36415; 80053; 80061; 82306; 82607; 84439; 84443

== ENCOUNTER → 2021-10-22 09:06 | Outpatient (BNVA) | payer OTHER, SELFPAY | PROVIDERS: PCP Internal Medicine; Visit Provider Orthopaedic Surgery | DX: M17.11 Unilateral primary osteoarthritis, right knee (principal); E11.42 Type 2 diabetes mellitus with diabetic polyneuropathy | CPT/HCPCS: 20610; 99212; J1100 ==

== ENCOUNTER 2022-09-30 09:29 | Outpatient (REF) | payer OTHER, SELFPAY ==
--- NOTE | ~2022-09-30 | XR_ITS ---
EXAMINATION: XR THORACOLUMBAR SPINE CLINICAL INFORMATION: Back pain COMPARISON: None available. TECHNIQUE: 3 views of thoracic spine FINDINGS: There is no evidence of fractures or dislocations. Vertebral bodies are well aligned there is mild diffuse osteopenia. Pedicles are preserved. Soft tissues unremarkable. XR/XR thoracic spine 2V IMPRESSION: Mild diffuse osteopenia.
--- NOTE | ~2022-09-30 | XR_ITS ---
EXAMINATION: XR LUMBOSACRAL SPINE WITH OBLIQUES CLINICAL INFORMATION: Low back pain COMPARISON: 05/30/2016 TECHNIQUE: AP, both oblique, and lateral views of the lumbar spine. Lateral view of the lumbosacral junction. FINDINGS: There is normal segmentation of lumbar spine vertebral bodies with 5 not ribs bearing vertebral bodies seen. Vertebral bodies are well aligned and intervertebral discs are preserved. Pedicles are intact. There is grade 1 anterior stable spondylolysis and there is stable spondylolysis spondylolysis of L5-S1. Soft tissues are unremarkable. 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
--- NOTE | ~2022-09-30 | XR_ITS ---
EXAMINATION: XR SHOULDER, RIGHT CLINICAL INFORMATION: Right shoulder pain COMPARISON: None available. TECHNIQUE: AP external rotation, Grashey, scapular Y, and axillary views of the right shoulder. FINDINGS: The bones and soft tissues are normal. No fracture. Glenohumeral and acromioclavicular alignment is anatomic with normal joint space. No abnormal soft tissue calcifications. XR/XR shoulder RT min 2V IMPRESSION: Normal right shoulder.
== END 2022-09-30 09:30 | disposition home or self-care (01) ==
LOC: HO.HHCX 09:29
PROVIDERS: Visit Provider Registered Nurse
DX: M25.511 Pain in right shoulder (principal); M54.50 Low back pain, unspecified; M54.6 Pain in thoracic spine
CPT/HCPCS: 72070; 72110; 73030

== ENCOUNTER 2022-09-30 10:40 | Outpatient (REF) | payer OTHER, SELFPAY ==
[2022-09-30 12:35] LABS: Anion Gap 11 (12-20); Blood Urea Nitrogen 14 mg/dL (9-16); Calcium 9.7 mg/dL (8.4-10.2); Carbon Dioxide 29 mmol/L (22-29); Chloride 106 mmol/L (96-108); Estimated Glomerular Filt Rate 36; Glucose Random 166 mg/dL (60-115); Sodium 141 mmol/L (135-145)
== END 2022-09-30 10:41 | disposition home or self-care (01) ==
LOC: HO.HHCL 10:40
PROVIDERS: Visit Provider Registered Nurse
DX: N18.30 Chronic kidney disease, stage 3 unspecified (principal)
CPT/HCPCS: 36415; 80048

== ENCOUNTER 2022-11-09 11:34 | Outpatient (REF) | payer OTHER, SELFPAY ==
[2022-11-09 14:30] LABS: TSH reflex Free T4 2.87 uIU/mL (0.32-4.0)
== END 2022-11-09 11:35 | disposition home or self-care (01) ==
LOC: HO.HHCL 11:34
PROVIDERS: Visit Provider Registered Nurse
DX: E03.9 Hypothyroidism, unspecified (principal)
CPT/HCPCS: 36415; 84443

== ENCOUNTER 2024-02-08 11:41 | Outpatient (REF) | payer OTHER, SELFPAY ==
[2024-02-08 13:10] LABS: MANUAL DIFF FLAG NO
[2024-02-08 13:15] LABS: Basophils Absolute Auto 0.1 X10*3/uL (0.0-0.2); Basophils Percent Auto 1.2 % (0-2); Eosinophils Absolute Auto 0.3 X10*3/uL (0.0-0.4); Eosinophils Percent Auto 3.9 % (0-4); Hematocrit 30.5 % (42.0-52.0); Hemoglobin 9.8 g/dl (14.0-18.0); Imm Gran Abs Auto 0.02 X10*3/uL (0.00-0.03); Imm Gran Pct Auto 0.2 % (0.0-0.4); Lymphocytes Absolute Auto 2.8 X10*3/uL (1.2-4.9); Lymphocytes Percent Auto 32.3 % (20-40); Mean Corpuscular HGB Conc 32.1 g/dl (31.0-36.0); Mean Corpuscular Hemoglobin 25.9 pg (27.0-33.0); Mean Corpuscular Volume 80.7 fL (80.0-98.0); Mean Platelet Volume 11.1 fL (9.4-12.4); Monocytes Absolute Auto 0.6 X10*3/uL (0.1-1.2); Monocytes Percent Auto 7.1 % (2-11); Neutrophils Absolute Auto 4.8 x10*3/uL (2.0-8.3); Neutrophils Percent Auto 55.3 % (45-73); Platelet Count 268 X10*3/uL (160-400); Red Blood Count 3.78 X10*6/uL (4.60-5.80); Red Cell Distribution Width 15.7 % (11.0-16.0); White Blood Count 8.6 X10*3/uL (4.8-10.8)
[2024-02-08 13:32] LABS: Estimated Average Glucose 223 mg/dL; Hemoglobin A1C 194.5596 umol/L; Hemoglobin A1c % 9.4 % (<6.0); Total Hemoglobin (HGBA1C) 2447.1837 umol/L
[2024-02-08 13:39] LABS: Alanine Aminotransferase < 6 U/L (0-40); Albumin Level 4.1 g/dL (3.5-5.0); Alkaline Phosphatase 94 U/L (39-117); Anion Gap 8 (12-20); Aspartate Amino Transferase 17 U/L (5-37); Bilirubin Direct 0.1 mg/dL (0.0-0.5); Bilirubin Total 0.3 mg/dL (0.0-1.0); Blood Urea Nitrogen 15 mg/dL (9-16); Calcium 9.4 mg/dL (8.4-10.2); Carbon Dioxide 29 mmol/L (22-29); Chloride 107 mmol/L (96-108); Cholesterol 151 mg/dL (<200); Estimated Glomerular Filt Rate 33; Glucose Random 192 mg/dL (60-115); HDL Cholesterol 33 mg/dL (>40); LDL Cholesterol Calculated 89 mg/dL (<100); Sodium 139 mmol/L (135-145); Total Protein 7.9 g/dL (6.5-8.0); Triglycerides 145 mg/dL (<150)
[2024-02-08 14:06] LABS: Folate 11.1 ng/mL (> or = 4.0); Vitamin B12 1965 pg/mL (200-900)
== END 2024-02-08 11:42 | disposition home or self-care (01) ==
LOC: HO.HHCL 11:41
PROVIDERS: Visit Provider Family Medicine
DX: E11.22 Type 2 diabetes mellitus with diabetic chronic kidney disease (principal); Z79.4 Long term (current) use of insulin; R29.6 Repeated falls
CPT/HCPCS: 36415; 80048; 80061; 80076; 82607; 82746; 83036; 85025

== ENCOUNTER 2024-02-09 09:59 | Outpatient (REF) | payer OTHER, SELFPAY | END 2024-02-09 10:00 | disposition home or self-care (01) | LOC: HO.XRAY 09:59 | PROVIDERS: PCP Internal Medicine; Visit Provider Family Medicine | DX: M54.16 Radiculopathy, lumbar region (principal); M25.532 Pain in left wrist | CPT/HCPCS: 72100; 73110 ==

== ENCOUNTER 2024-02-29 10:12 | Outpatient (REF) | payer OTHER, SELFPAY ==
[2024-02-29 12:18] LABS: Creatinine Urine 196.72 mg/dL; Microalbum/Creatinine Ratio Ur 46.2 ug/mg cr (<30)
== END 2024-02-29 10:13 | disposition home or self-care (01) ==
LOC: HO.HHCL 10:12
PROVIDERS: Visit Provider Family Medicine
DX: E11.22 Type 2 diabetes mellitus with diabetic chronic kidney disease (principal); Z79.4 Long term (current) use of insulin
CPT/HCPCS: 82043; 82570

== ENCOUNTER 2025-01-23 14:08 | Outpatient (REF) | payer OTHER, SELFPAY ==
--- OUTSIDE RECORDS SUMMARY | 2024-04-09 03:00 | XMS_ITS ---
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 Role Phone Rosaura Queen Primary Care Provider Clau myronilaCharity Brumfield Unavailable [phone] REASON FOR VISIT Chronic Care F/U Encounters Encounter Location Date Provider Diagnosis [facility] [address] [place] [address] 04/09/2024 Charity Clement Plan Of Treatment No Information Progress Notes * Suzie BENNETT nDOB:1940 (84 yo M)Acc No.[id number]:04/09/2024 BLOCKED FROM THE PATIENT Patient: Ken Tena BHANDARI External Provider: TIANNA Tipton :1940 A ge:83 Y S ex:Male Date:04/09/2024 Address:[address] [place] [address] [address], [place], [place]-[id number] Pcp:Rosaura Diallo Patient's Default Facility:[facility] Subjective: * Chief Complaints: * 1 . Chronic Care F/U. * Medical History: Objective: * Vitals: Assessment: Plan: * Treatment: Care Plan: * Problems: * * The named appointment provid er may or may not be the originator of this progress note, and it is not deemed complete until electronically signed by the appointment provider. Sign off status: Pending * Provider: TIANNA Tipton Date: 0 04/09/2024 Generated for Ace lester/Edmundo/Humble on: 1 03/26/2024 07:37 PM EST
--- OUTSIDE RECORDS SUMMARY | 2024-04-22 03:00 | XMS_ITS ---
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 Role Phone Rosaura Queen Primary Care Provider Clau myronilaCharity Brumfield Unavailable [phone] REASON FOR VISIT Chronic Care F/U Encounters Encounter Location Date Provider Diagnosis [facility] [address] [place] [address] 04/22/2024 Charity Clement Plan Of Treatment No Information Progress Notes * Suzie BENNETT nDOB:1940 (84 yo M)Acc No.[id number]:04/22/2024 BLOCKED FROM THE PATIENT Patient: Ken Tena BHANDARI External Provider: TIANNA Tipton :1940 A ge:83 Y S ex:Male Date:04/22/2024 Address:[address] [place] [address] [address], [place], [id number] Pcp:Rosaura Diallo Patient's Default Facility:[facility] Subjective: * Chief Complaints: * 1 . [...] status: Pending * Provider: TIANNA Tipton Date: 04/22/2024 Generated for Ace lester/Edmundo/Humble on: 1 03/26/2024 01:01 PM EST
--- OUTSIDE RECORDS SUMMARY | 2025-01-23 13:15 | XMS_ITS | Encounter Summary ---
Author Organization [employer] Address [address] [place] [address] Care Team Providers Care Housekeeper Cleaning Cooking Name Role Phone Rosaura Queen MD Primary Care Provide r Reason for Referral * Consultation (Routine) - Authorized Specialty Diagnoses / Procedures Referred By Kiley t Referred To Contact Pharmacy Diagnoses Tobacco dependence syndrome Rosaura Queen MD [address] [place] [address] Phone: tel: fax: Referral ID Status Reason Start Date Expiration Date Visits Requested Visits Authorized [id number] Authorized Consult and Treat 01/23/2025 01/23/2026 6 6 * Consultation (Routine) - Authorized Specialty Diagnoses / Procedures Referred By Contjose guadalupe t Referred To Contact Nephrology Diagnoses Type 2 diabetes mellitus with chronic kidney disease, with long-term current use of insulin, unspecified CKD stage (HCC) Stage 3 chronic kidney disease, unspecified whether stage 3a or 3b CKD (CMS/HCC) (HCC) Rosaura Queen MD [address] [place] [address] Phone: tel: fax: [facility] [address] [place] [address] Drive, [address] [place] [address] Phone: tel: fax: Referral ID Status Reason Start Date Expiration Date Visits Requested Visits Authorized [id number] Authorized Specialty Services Required 01/23/2025 01/23/2026 1 1 * Consultation (Routine) - Authorized Specialty Diagnoses / Procedures Referred By Contac t Referred To Contact Optometry Diagnoses Type 2 diabetes mellitus with chronic kidney disease, with long-term current use of insulin, unspecified CKD stage (HCC) Rosaura Queen MD [address] [place] [phone] Phone: tel: fax: [facility] [address] [place] [address] Phone: tel:[phone] fax: Referral ID Status Reason Start Date Expiration Date Visits Requested Visits Authorized [id number] Authorized Specialty Services Required 01/23/2025 01/23/2026 1 1 Encounter Details Date Type Department Care Team (Latest Contact Info) Description 01/23/2025 1:15 PM EST Office Visit [facility] [address] [place] [phone] Rosaura Queen MD [address] [place] [phone] Acquired hypothyroidism (Primary Dx); Type 2 diabetes mellitus with chronic kidney disease, with long-term current use of insulin, unspecified CKD stage (HCC); Chronic obstructive pulmonary disease, unspecified COPD type (CMS/HCC) (HCC); Stage 3 chronic kidney disease, unspecified whether stage 3a or 3b CKD (CMS/HCC) (HCC); Lumbar radiculopathy; Tobacco dependence syndrome Social History Tobacco Use Types Packs/Day Years Used Date Smoking Tobacco: Every Day Cigarettes Smokeless Tobacco: Never Alcohol Use Standard Drinks/Week Comments Not Currently 0 (1 standard drink = 0.6 oz pur e alcohol) Depression Answer Date Recorded Patient Health Questionnaire-9 Score 8 09/29/2022 Housing Stability Answer Date Recorded What is your housing situation today? I have page [place] 11/30/[address] you li ve. Do you have problems with any of the following? None of the above 11/30/2023 Food Insecurity Answer Date Recorded Within the past 12 months, y ou worried that your food would run out before you got money to buy more: Sometimes True 2023 Within the past 12 months,th e food you bought just didn't last and you didn't have enough money to get more: Sometimes True 11/30/2023 Transportation Answer Date Recorded In the past 12 months, has l ack of transportation kept you from medical appts, meetings, work or from getting things needed for daily living? Yes, it has kept me from medical appointments or getting medications. 11/30/2023 Utilities Answer Date Recorded In the past 12 months, has t he electric, gas, oil or water company threatened to shut off services in your home? No 11/30/2023 Depression Answer Date Recorded Patient Health Questionnaire-2 Score 2 09/29/2022 Internet Access Answer Date Recorded Internet Access Q1 Yes 11/30/2023 Internet Access Q2 Not on file 11/30/2023 Sex and Gender Information Value Date Recorded Sex Assigned at Male 12/20/2021 10:18 AM EDT Legal Sex Male 10:18 AM EDT Gender Identity Male 12/20/2021 10:18 AM EDT Sexual Orientation Straight 07/21/2023 4: 52 PM EDT documented as of this encounter Last Filed Vital Signs Vital Sign Reading Time Taken Comments Blood Pressure 122/78 01/23/2025 1:26 PM EST Pulse 81 01/23/2025 1:26 PM EST Temperature 34.5 C (94.1 F) 01/23/2025 1:26 PM EST Respiratory Rate 23 01/23/2025 1:26 PM EST Oxygen Saturation 97% 01/23/2025 1:26 PM EST Inhaled Oxygen Concentration - - Weight 80.4 kg (177 lb 3.2 oz) 01/23/2025 1:26 P M EST Height 165.1 cm (5' 5 ) 01/23/2025 1:26 PM EST Body Mass Index 29.49 01/23/2025 1:26 PM EST documented in this encounter Progress Notes * Rosaura Diallo MD - 01/23/2025 1:15 PM EST SUBJECTIVE: Tena Morales is a 84 y.o. year old male who presents for Transfer appointment . Occupation:retired Lives with:alone - EtOH denies - smoking cigarettes 7-8 cigarettes daily (he smokes since age 14) - recreational drug use denies Diet:regular Exercise:sedentary Surgeries/Hospitalizations:none PMHx:on chart Immunizations: Flu and COVID today Tena Morales, age: 84 years Diabetes Mellitus - Longstanding history of diabetes, poorly controlled - Last reported blood glucose 361 mg/dL, HbA1c 10.2% - Reports episodes of imbalance, possibly related to fluctuating blood sugar - Last episode of high blood sugar occurred 2-3 weeks prior, while at home during daytime - Under care of bindery machine setter/set up operator Claudia Rothman for diabetes management - Receives insulin and Tradjenta, medications managed by bindery machine setter/set up operator - Niece assists with medication management and appointments - Denies consumption of soda, juice, sweets, cakes, muffins, donuts, or ice cream - Drinks coffee and water without sugar - Eats eggs and small amounts of rice, sometimes leaves food uneaten Diabetic Neuropathy - Reports tingling and discomfort in both knees - Neuropathy symptoms relieved temporarily by warm water baths and massage - Difficulty walking, frequent falls, feels more secure using cane than walker - Uses cane and walker for ambulation, has a damaged wheelchair - Limited mobility, unable to walk long distances, gets out of breath and falls to the side Arthritis - Chronic pain in both knees, especially at night - Receives knee injections occasionally - Takes acetaminophen for arthritis pain as needed Hypertension - History of hypertension Hyperlipidemia - History of high cholesterol Chronic Back Pain - Persistent pain from lower back down, attributed to prior accident Pulmonary Symptoms - History of chronic cough - Uses inhalers for respiratory symptoms Renal Concerns - Reports history of kidney issues, previously under care of fudge candy maker, but not currently followed Psychiatric History - Denies anxiety, depression, or history of psychiatric therapy or counseling Tobacco Use - Smokes cigarettes daily, started at age 14 - Has not attempted cessation with patches or lozenges prior to this visit [facility] [place] - Reports limited activity, rarely leaves home, niece assists with daily needs and appointments - Last COVID-19 vaccine received in 2022 Social History Social History Narrative Not on file Problem List[1] Acquired hypothyroidism Anemia in chronic kidney disease Hypertension Chronic obstructive lung disease (HCC) Depressive disorder Dyslipidemia Leukocytosis Lumbar radiculopathy Microalbuminuria Multiple renal cysts Stage 3 chronic kidney disease (CMS/HCC) (HCC) Tobacco dependence syndrome Type 2 diabetes mellitus with diabetic chronic kidney disease (HCC) Left wrist pain Falls Family History[2] Review of Systems Constitutional: Negative. HENT: Negative. Respiratory: Negative. Cardiovascular: Negative. Musculoskeletal: Positive for arthralgias, back pain and myalgias. OBJECTIVE: Vitals: 01/23/25 1326 BP: 122/78 BP Location: Left arm Patient Position: Sitting BP Cuff Size: Adult Pulse: 81 Resp: 23 Temp: 94.1 ??F (34.5 ??C) TempSrc: Temporal SpO2: 97% Weight: 177 lb 3.2 oz (80.4 kg) Height: 5' 5 (1.651 m) Physical Exam Constitutional: Appearance: Normal appearance. Cardiovascular: Rate and Rhythm: Normal rate and regular rhythm. Pulmonary: Effort: Pulmonary effort is normal. Breath sounds: Normal breath sounds. Abdominal: General: Abdomen is flat. Palpations: Abdomen is soft. Musculoskeletal: Right lower leg: No edema. Left lower leg: No edema. Neurological: Mental Status: He is alert. Follow Up: No follow-ups on file. Medications Ordered Prior to Encounter[3] Problem List Items Addressed This Visit Type 2 diabetes mellitus with diabetic chronic kidney disease (HCC) Relevant Orders POCT Glucose (Completed) POCT Hgb A1c (Completed) CBC auto differential Comprehensive Metabolic Panel HIV-1/2 Antigen and Antibodies, Fourth Generation, with Reflexes Hepatitis C Antibody with Reflex to HCV, RNA, Quantitative, Real-Time PCR Lipid Panel, Standard Vitamin D, 25-Hydroxy, Total, Immunoassay TSH with Reflex to Free T4 Referral to Optometry Referral to Nephrology Chronic obstructive lung disease (HCC) Stage 3 chronic kidney disease (CMS/HCC) (HCC) Relevant Orders Referral to Nephrology Acquired hypothyroidism - Primary Lumbar radiculopathy Relevant Medications acetaminophen (Tylenol 8 Hour) 650 MG ER tablet Tobacco dependence syndrome Relevant Medications nicotine (Nicoderm CQ) 14 MG/24HR patch Other Relevant Orders Referral to Pharmacy CDTM Type 2 diabetes mellitus with chronic kidney disease, with long-term current use of insulin, unspecified CKD stage: - Diabetes is poorly controlled, with recent glucose of 361 mg/dL and HbA1c of 10.2%. Insulin regimen managed by bindery machine setter/set up operator Claudia Rothman. Noted diabetic neuropathy symptoms. - Recommended follow-up with bindery machine setter/set up operator for medication adjustment and diabetes management. Advised dietary modifications: avoid soda, juice, sweets, cakes, muffins, donuts, and consume more protein and vegetables. Ordered blood tests for monitoring. Referred for ophthalmology evaluation. Continue current insulin regimen as prescribed by bindery machine setter/set up operator. Scheduled next visit in 3 months. Chronic obstructive pulmonary disease, unspecified COPD type: - COPD with chronic cough, uses inhalers as needed. - Continue inhaler therapy. Referred to pulmonology for further evaluation and management. Scheduled follow-up in 3 months. Stage 3 chronic kidney disease, unspecified whether stage 3a or 3b CKD: - CKD stage 3, renal function noted to be impaired. - Referred to nephrology for evaluation and ongoing management. Ordered blood tests for renal function monitoring. Acquired hypothyroidism: - Acquired hypothyroidism, currently on thyroid medication. - Continue current thyroid medication. Ordered blood tests for thyroid function monitoring. Lumbar radiculopathy: - Chronic lumbar pain radiating down, consistent with lumbar radiculopathy. - Recommended acetaminophen arthritis 650 mg for pain as needed, especially at night. Referred for physical therapy to improve stability and mobility. Continue use of cane and walker for ambulation. Tobacco dependence syndrome: - Ongoing tobacco use since adolescence, difficulty quitting. - Prescribed nicotine patches. Referred for smoking cessation follow-up. Advised to avoid triggers and consider behavioral support. Scheduled follow-up in 3 months. This note was drafted using [employer] ([employer]) technology. The patient/patient's guardian has been informed and has consented to the use of this technology: Yes [1] Patient Active Problem List Diagnosis Acquired hypothyroidism Anemia in chronic kidney disease Hypertension Chronic obstructive lung disease (HCC) Depressive disorder Dyslipidemia Leukocytosis Lumbar radiculopathy Microalbuminuria Multiple renal cysts Stage 3 chronic kidney disease (CMS/HCC) (HCC) Tobacco dependence syndrome Type 2 diabetes mellitus with diabetic chronic kidney disease (HCC) Left wrist pain Falls [2] Family History Problem Relation Name Age of Onset Cataracts Mother [3] Current Outpatient Medications on File Prior to Visit Medication Sig Dispense Refill albuterol 108 (90 Base) MCG/ACT inhaler INHALE 2 PUFFS BY MOUTH EVERY 4 TO 6 HOURS NEEDED 8.5 g 1 Aspirin Low Dose 81 MG EC tablet Take 81 mg by mouth at bedtime. atorvastatin (Lipitor) 20 MG tablet TAKE 1 TABLET BY MOUTH AT BEDTIME 90 tablet 0 Baqsimi Two Pack 3 MG/DOSE nasal powder USE 1 SPRAY (3MG) IN ONE NOSTRIL FOR A PATIENT WITH SEVERE HYPOGLYCEMIA WHO IS NOT RESPONSIVE AND UNABLE SELF-TREAT WITH GLUCOSE. AFTERWARDS TURN ON SIDE. MAY REPEAT IN 15MINUTES IF PATIENT DOES NOT RESPOND. Continuous Blood Gluc Media Manager (FreeStyle Yong 2 [place]) device USE TO TEST BLOOD SUGAR DIRECTED Continuous Blood Gluc Sensor (FreeStyle Yong 2 Sensor) misc CHANGE EVERY 2 WEEKS DIRECTED cyanocobalamin (Vitamin B-12) 1000 MCG tablet TAKE 1 TABLET BY MOUTH EVERY MORNING 90 tablet 1 D3 Super Strength 50 MCG (2000 UT) capsule TAKE 1 CAPSULE BY MOUTH EVERY MORNING 90 capsule 1 dexlansoprazole (Dexilant) [address] capsule TAKE 1 CAPSULE BY MOUTH EVERY MORNING 90 capsule 3 dilTIAZem CD (Cardizem CD) 180 MG 24 hr capsule Take 1 capsule (180 mg) by mouth at bedtime. 30 capsule 0 docusate sodium (Colace) 100 MG capsule TAKE 1 CAPSULE BY MOUTH EVERY EVENING 90 capsule 0 donepezil (Aricept) 10 MG tablet Take 10 mg by mouth at bedtime. Embecta Pen Needle Asuncion 32G X 4 MM misc USE DIRECTED FOUR TIMES DAILY 100 each 3 FLUoxetine (PROzac) 40 MG capsule TAKE 1 CAPSULE BY MOUTH EVERY MORNING 90 capsule 0 fluticasone (Flonase) 50 MCG/ACT nasal spray INSTILL 1 SPRAY IN EACH NOSTRIL ONCE DAILY 48 g 3 fluticasone (Flovent HFA) 110 MCG/ACT inhaler INHALE 2 PUFFS BY MOUTH TWICE DAILY. RINSE MOUTH AFTER USING. 12 g 5 glucose blood (FREESTYLE LITE) test strip USE DIRECTED TO TEST BLOOD SUGAR UP TO SIX TIMES [id number] strip 1 Lantus SoloStar 100 UNIT/ML pen TAKE 40 UNITS ONCE DAILY AT BEDTIME levothyroxine (Synthroid, Levoxyl) 112 MCG tablet Take 1 tablet (112 mcg) by mouth in the morning. 30 tablet 0 lidocaine (Lidoderm) 5 % patch Apply 1 patch topically in the morning. Remove & discard patch within 12 hours or as directed by . 30 patch 3 Lidocaine 5 % cream Apply topically bid 30 g 3 lisinopril 5 MG tablet TAKE 1 TABLET BY MOUTH EVERY DAY 90 tablet 0 NovoLIN 70/30 FlexPen (70-30) 100 UNIT/ML injection NovoLOG FLEXPEN 100 UNIT/ML pen INJECT 7-19 UNITS SUBCUTANEOUSLY PER SLIDING SCALE THREE TIMES DAILY BEFORE MEALS. MAX 57 UNITS DAILY. pregabalin (Lyrica) 150 MG capsule Take 1 capsule (150 mg) by mouth 2 times daily. 60 capsule 0 senna (Senokot) 8.6 MG tablet TAKE 1 TABLET BY MOUTH TWICE DAILY IN THE MORNING AND IN THE EVENING FOR CONSTIPATION 60 tablet 0 Tradjenta 5 MG tablet Take 5 mg by mouth in the morning. TRUEplus Lancets 33G misc USE SIX TIMES DAILY DIRECTED 200 each 11 UltiCare Short Pen [place] 31G X 8 MM misc USE FOUR TIMES DAILY WITH INSULIN DIRECTED Umeclidinium Clifford (Incruse Ellipta) 62.5 MCG/ACT aerosol powder INHALE 1 PUFF BY MOUTH EVERY DAYAT THE SAME TIME RINSE MOUTH AFTER USING 30 each 0 [DISCONTINUED] acetaminophen (Tylenol 8 Hour) 650 MG ER tablet TAKE 1 TABLET BY MOUTH EVERY 8 HOURSAS NEEDED. SWALLOW WHOLE WITH WATER. DO NOT BREAK, CRUSH, DISSOLVE OR CHEW 60 tablet 3 No current facility-administered medications on file prior to visit. documented in this encounter Plan of Treatment Scheduled Orders Name Type Priority Associated Diagnoses Orde r Schedule HIV-1/2 Antigen and Antibodies, Fourth Generation, with Reflexes Lab Routine Type 2 diabetes mellitus with chronic kidney disease, with long-term current use of insulin, unspecified CKD stage (HCC) Expected: 01/23/2025 (Approximate), Expires: 01/23/2026 Hepatitis C Antibody with Reflex to HCV, RNA, Quantitative, Real-Time PCR Lab Routine Type 2 diabetes mellitus with chronic kidney disease, with long-term current use of insulin, unspecified CKD stage (HCC) Expected: 01/23/2025, Expires: 01/23/2026 Scheduled Referrals Name Type Priority Associated Diagnoses Orde r Schedule Referral to Optometry Outpatient Referral Routine Type 2 diabetes mellitus with chronic kidney disease, with long-term current use of insulin, unspecified CKD stage (HCC) Expected: 01/23/2025 (Approximate), Expires: 01/23/2026 Referral to Nephrology Outpatient Referral Routine Type 2 diabetes mellitus with chronic kidney disease, with long-term current use of insulin, unspecified CKD stage (HCC) Stage 3 chronic kidney disease, unspecified whether stage 3a or 3b CKD (CMS/HCC) (HCC) Expected: 01/23/2025 (Approximate), Expires: 01/23/2026 Referral to Pharmacy CD Outpatient Referral Routine Tobacco dependence syndrome Ordered: 01/23/2025 documented as of this encounter Goals Goal Patient Goal Type Associated Problems Recent Progress Patient-Stated? Author Help patients manage their type 2 diabetes Care Plan Help patients manage their type 2 diabetes No Neela Ronquillo Weekly blood pressure task Care Plan Weekly blood pressure task No Neela Ronquillo Help patients manage their type 2 diabetes Care Plan Help patients manage their type 2 diabetes No Neela Ronquillo Patient has chronic kidney disease Care Plan Patient has chronic kidney disease No Neela Ronquillo Weekly blood pressure task Care Plan Weekly blood pressure task No Neela Ronquillo Patient has chronic kidney disease Care Plan Patient has chronic kidney disease No Neela Ronquillo Weekly blood pressure task Care Plan Weekly blood pressure task No Dwayne Grover [place] Weekly blood pressure task Care Plan Weekly blood pressure task No Dwayne Grover [place] Patient has chronic kidney disease Care Plan Patient has chronic kidney disease No Dwayne Grover [place] Patient has chronic kidney disease Care Plan Patient has chronic kidney disease No Dwayne Grover [place] Weekly blood pressure task Care Plan Weekly blood pressure task No Rosaura Queen MD Weekly blood pressure task Care Plan Weekly blood pressure task No Rosaura Queen MD Patient has chronic kidney disease Care Plan Patient has chronic kidney disease No Rosaura Queen MD Patient has chronic kidney disease Care Plan Patient has chronic kidney disease No Rosaura Queen MD documented as of this encounter Procedures Procedure Name Priority Date/Time Associated Diagnosis Comments VITAMIN D,25-OH,TOTAL,IA Routine 01/23/2025 2:17 PM EST Type 2 diabetes mellitus with chronic kidney disease, with long-term current use of insulin, unspecified CKD stage (HCC) TSH W/REFLEX TO FT4 Routine 01/23/2025 2 :17 PM EST Type 2 diabetes mellitus with chronic kidney disease, with long-term current use of insulin, unspecified CKD stage (HCC) CBC WITH AUTO DIFFERENTIAL Routine 01/23/2025 2:17 PM EST Type 2 diabetes mellitus with chronic kidney disease, with long-term current use of insulin, unspecified CKD stage (HCC) LIPID PANEL, STANDARD Routine 01/23/2025 2:17 PM EST Type 2 diabetes mellitus with chronic kidney disease, with long-term current use of insulin, unspecified CKD stage (HCC) COMPREHENSIVE METABOLIC PANEL Routine 01/23/2025 2:17 PM EST Type 2 diabetes mellitus with chronic kidney disease, with long-term current use of insulin, unspecified CKD stage (HCC) POCT GLYCATED HEMOGLOBIN, TOTAL Routine 01/23/2025 1:29 PM EST Type 2 diabetes mellitus with chronic kidney disease, with long-term current use of insulin, unspecified CKD stage (HCC) POCT GLUCOSE Routine 01/23/2025 1:28 PM EST Type 2 diabetes mellitus with chronic kidney disease, with long-term current use of insulin, unspecified CKD stage (HCC) documented in this encounter Results * (ABNORMAL) TSH with Reflex to Free T4 (01/23/2025 2:17 PM EST) TSH reflex Free T4 10.91(H) 0.32 - 4.0 uIU/mL [facility] Blood Venous blood specimen / Unknown 01/23/2025 2:17 PM EST 01/23/2025 3:59 PM EST us Rosaura Diallo MD LAB BLOOD ORDERABLES Final Result [facility] [address] [place] [phone] * Vitamin D, 25-Hydroxy, Total, Immunoassay (01/23/2025 2:17 PM EST) Vitamin D 25-OH Total 39.1 >30 ng/mL [facility] Comment: Health Based Reference Values*< 20 ng/mL Kugolitno52-88 ng/mL Insufficient> 30 ng/mL Sufficient*Manuel LE. N Engl J Med. 2007;357:266-280There is no well-established upper level of normal vitamin Dlevels. Some laboratories use 50 ng/mL as an upper limit ofnormal. However, toxicity is patient-dependent and may occurat any level. Careful correlation with the patient'spresentation is necessary and, if there is concern forvitamin D toxicity, treatment should be consideredirrespective of the serum level.Care must be taken in interpreting Vitamin D results fromdifferent laboratories and methodologies. Published datademonstrated that results from patients undergoinghemodialysis may show a negative bias when tested withvarious automated 25-OH vitamin D assays when compared toLC-MS/MS.When testing samples from patients whose predominant form ofVitamin D is Vitamin D2, such as patients receiving VitaminD2 supplementation, results that are subtherapeutic shouldbe confirmed with another method such as LC-MS/MS. Blood Venous blood specimen / Unknown 01/23/2025 2:17 PM EST 01/23/2025 3:59 PM EST us Rosaura Diallo MD LAB BLOOD ORDERABLES Final Result [facility] [address] [place] [phone] * (ABNORMAL) Lipid Panel, Standard (01/23/2025 2:17 PM EST) Triglycerides 144 <150 mg/dL [facility] Comment:Desirable Triglyceri de: less than 150 mg/dLBorderline High Triglyceride 150-199 mg/dLHigh Triglyceride: 200-499 mg/dLVery High Triglyceride: greater than or equal to 5OO mg/dL Cholesterol 140 <200 mg/dL [facility] Comment:Desirable Cholestero l: less than 200 mg/dLBorderline High Cholesterol: 200-239 mg/dLHigh Cholesterol: greater than 239 mg/dL LDL Cholesterol Calculated 76 <100 mg/dL [facility] Comment:Desirable LDL: less than 100 mg/dLNear Optimal/Above Optimal LDL: 110- 129 mg/dLBorderline High LDL: 130-159 mg/dLHigh LDL: 160-189 mg/dLVery High LDL: greater than or equal to 190 mg/dL HDL Cholesterol 36(L) >40 mg/dL [facility] Comment:Desirable HDL: great er than 40 mg/dL Note: This HDL assay may give artificially low results in patients with liver disease. Blood Venous blood specimen / Unknown 01/23/2025 2:17 PM EST 01/23/2025 3:59 PM EST us Rosaura Diallo MD LAB BLOOD ORDERABLES Final Result [facility] [address] [place] [phone] * (ABNORMAL) Comprehensive Metabolic Panel (01/23/2025 2:17 PM EST) Sodium 139 135 - 145 mmol/L [facility] Potassium 5.2(H) 3.3 - 5.1 mmol/L [facility] Chloride 104 96 - 108 mmol/L [facility] Carbon Dioxide 28 22 - 29 mmol/L [facility] Anion Gap 12 12 - 20 [facility] Urea Nitrogen (BUN) 14 9 - 16 mg/dL [facility] Creatinine, Serum 1.83(H) 0.5 - 1.4 mg/dL [facility] Estimated Glomerular Filt Rate 35 [facility] Comment:Chronic Kidney Disea se: Estimated GFR < 60 mL/min/1.41x6Nhmwyc Kidney Disease: Estimated GFR < 15 mL/min/1.73m2 Glucose 267(H) 60 - 115 mg/dL [facility] Calcium 9.5 8.4 - 10.2 mg/dL [facility] Bilirubin, Total 0.3 0.0 - 1.0 mg/dL [facility] Aspartate Amino Transferase 20 5 - 37 U/L [facility] Alanine Aminotransferase 6 0 - 40 U/L [facility] Total Protein 7.7 6.5 - 8.0 g/dL [facility] Albumin Level 4.4 3.5 - 5.0 g/dL [facility] Alkaline Phosphatase 88 39 - 117 U/L [facility] Blood Venous blood specimen / Unknown 01/23/2025 2:17 PM EST 01/23/2025 3:59 PM EST us Rosaura Diallo MD LAB BLOOD ORDERABLES Final Result [facility] [phone] [place] [address] [phone] * (ABNORMAL) CBC auto differential (01/23/2025 2:17 PM EST) White Blood Count 8.4 4.8 - 10.8 X10*3/uL [facility] Red Blood Count 4.10(L) 4.60 - 5.80 X10*6/uL [facility] Hemoglobin 11.2(L) 14.0 - 18.0 g/dl [facility] Hematocrit 34.7(L) 42.0 - 52.0 % [facility] Mean Corpuscular Volume 84.6 80.0 - 98.0 fL [facility] Mean Corpuscular Hemoglobin 27.3 27.0 - 33.0 pg [facility] Mean Corpuscular HGB Conc 32.3 31.0 - 36.0 g/dl [facility] Red Cell Distribution Width 15.1 11.0 - 16.0 % [facility] Platelet Count 263 160 - 400 X10*3/uL [facility] Mean Platelet Volume 11.0 9.4 - 12.4 fL [facility] Neutrophils Percent Auto 47.5 45 - 73 % [facility] Imm Gran Pct Auto 0.2 0.0 - 0.4 % [facility] Lymphocytes Percent Auto 40.4(H) 20 - 40 % [facility] Monocytes Percent Auto 7.5 2 - 11 % [facility] Eosinophils Percent Auto 3.2 0 - 4 % [facility] Basophils Percent Auto 1.2 0 - 2 % [facility] NRBC Pct Auto 0.0 0.0 - 0.2 /100WBC [facility] Neutrophils Absolute Auto 4.0 2.0 - 8.3 x10*3/uL [facility] Imm Gran Abs Auto 0.02 0.00 - 0.03 X10*3/uL [facility] Lymphocytes Absolute Auto 3.4 1.2 - 4.9 X10*3/uL [facility] Monocytes Absolute Auto 0.6 0.1 - 1.2 X10*3/uL [facility] Eosinophils Absolute Auto 0.3 0.0 - 0.4 X10*3/uL [facility] Basophils Absolute Auto 0.1 0.0 - 0.2 X10*3/uL [facility] NRBC Abs Auto 0.000 0.0 - 0.012 X10*3/uL [facility] Blood Venous blood specimen / Unknown 01/23/2025 2:17 PM EST 01/23/2025 3:59 PM EST us Rosaura Diallo MD LAB BLOOD ORDERABLES Final Result Performing Organization Address City/State/[facility] Co de Phone Number [facility] [address] [place] [phone] * (ABNORMAL) POCT Hgb A1c (01/23/2025 1:29 PM EST) Hemoglobin A1C 10.2(A) 4.0 - 5.7 % QC Media Lot # [id number] Lot# Expiration Date [id number] Blood 01/23/2025 1:29 PM EST Rosaura Diallo MD POINT OF CARE TEST EN TER/EDIT ORDERABLES Final Result * (ABNORMAL) POCT Glucose (01/23/2025 1:28 PM EST) Glucose Blood, POC 361(A) 60 - 200 mg/dL QC Media Lot # [id number] Lot# Expiration Date 72 Blood Capillary blood specimen / Unknown 01/23/2025 1:28 PM EST Rosaura Diallo MD POINT OF CARE TEST EN TER/EDIT ORDERABLES Final Result documented in this encounter Visit Diagnoses Diagnosis Acquired hypothyroidism- Primary Unspecified hypothyroidism Type 2 diabetes mellitus with chronic kidney disease, with long-term current use of insulin, unspecified CKD stage (HCC) Chronic obstructive pulmonary disease, unspecified COPD type (CMS/HCC) (HCC) Stage 3 chronic kidney disease, unspecified whether stage 3a or 3b CKD (CMS/HCC) (HCC) Lumbar radiculopathy Thoracic or lumbosacral neuritis or radiculitis, unspecified Tobacco dependence syndrome Tobacco use disorder documented in this encounter Additional Health Concerns Active Problems Noted Date Diagnosed Date Help patients manage their type 2 diabetes 01/08 Weekly blood pressure task 01/08/2025 Help patients manage their type 2 diabetes 01/08 Patient has chronic kidney disease 01/08/2025 Weekly blood pressure task 01/08/2025 Patient has chronic kidney disease 01/08/2025 Weekly blood pressure task 01/22/2025 Weekly blood pressure task 01/22/2025 Patient has chronic kidney disease 01/22/2025 Patient has chronic kidney disease 01/22/2025 Weekly blood pressure task 01/23/2025 Weekly blood pressure task 01/23/2025 Patient has chronic kidney disease 01/23/2025 Patient has chronic kidney disease 01/23/2025 Assessment Noted Time PHQ-9 Depression Total Score: 8 09/30/19 23 10:18 AM EDT documented as of this encounter Care Teams Housekeeper Cleaning Cooking Relationship Specialty Start Date End Date Rosaura Queen MD [address] [place] [phone] PCP - General Internal Medicine 12/30/24 documented as of this encounter
[2025-01-23 16:04] LABS: MANUAL DIFF FLAG NO
[2025-01-23 16:30] LABS: Hematocrit 34.7 % (42.0-52.0); Hemoglobin 11.2 g/dl (14.0-18.0); Imm Gran Abs Auto 0.02 X10*3/uL (0.00-0.03); Imm Gran Pct Auto 0.2 % (0.0-0.4); Lymphocytes Absolute Auto 3.4 X10*3/uL (1.2-4.9); Mean Corpuscular HGB Conc 32.3 g/dl (31.0-36.0); Mean Corpuscular Hemoglobin 27.3 pg (27.0-33.0); Mean Corpuscular Volume 84.6 fL (80.0-98.0); NRBC Abs Auto 0.000 X10*3/uL (0.0-0.012); NRBC Pct Auto 0.0 /100WBC (0.0-0.2); Platelet Count 263 X10*3/uL (160-400); Red Blood Count 4.10 X10*6/uL (4.60-5.80); White Blood Count 8.4 X10*3/uL (4.8-10.8)
[2025-01-23 16:35] LABS: Alanine Aminotransferase 6 U/L (0-40); Albumin Level 4.4 g/dL (3.5-5.0); Alkaline Phosphatase 88 U/L (39-117); Anion Gap 12 (12-20); Aspartate Amino Transferase 20 U/L (5-37); Blood Urea Nitrogen 14 mg/dL (9-16); Calcium 9.5 mg/dL (8.4-10.2); Carbon Dioxide 28 mmol/L (22-29); Chloride 104 mmol/L (96-108); Cholesterol 140 mg/dL (<200); Estimated Glomerular Filt Rate 35; HDL Cholesterol 36 mg/dL (>40); Potassium 5.2 mmol/L (3.3-5.1); Sodium 139 mmol/L (135-145); Total Protein 7.7 g/dL (6.5-8.0); Triglycerides 144 mg/dL (<150)
[2025-01-23 16:45] LABS: Vitamin B12 1183 pg/mL (200-900)
[2025-01-23 17:19] LABS: Free T4 (Free Thyroxine) 0.81 ng/dL (0.71-1.85)
--- OUTSIDE RECORDS SUMMARY | 2025-01-23 19:29 | XMS_ITS | Clinical Summary ---
Author Organization [employer] Address [address] [facility] [address] [place] [address] Care Team Providers Care Booth Cashier Name Role Phone Rosaura Queen MD Primary Care Provide r Allergies No known active allergies Medications Aspirin Low Dose 81 MG EC tablet Take 81 mg by mouth at bedtime. 022 Active Tradjenta 5 MG tablet Take 5 mg by mouth in the morning. 023 Active UltiCare Short Pen Coldiron 31G X 8 MM misc USE FOUR TIMES DAILY WITH INSULIN DIRECTED 023 Active NovoLIN 70/30 FlexPen (70-30) 100 UNIT/ML injection 023 Active Lantus SoloStar 100 UNIT/ML pen TAKE 40 UNITS ONCE DAILY AT BEDTIME 023 Active NovoLOG FLEXPEN 100 UNIT/ML pen INJECT 7-19 UNITS SUBCUTANEOUSLY PER SLIDING SCALE THREE TIMES DAILY BEFORE MEALS. MAX 57 UNITS DAILY. 023 Active Baqsimi Two Pack 3 MG/DOSE nasal powder USE 1 SPRAY (3MG) IN ONE NOSTRIL FOR A PATIENT WITH SEVERE HYPOGLYCEMIA WHO IS NOT RESPONSIVE AND UNABLE SELF-TREAT WITH GLUCOSE. AFTERWARDS TURN ON SIDE. MAY REPEAT IN 15MINUTES IF PATIENT DOES NOT RESPOND. 023 Active donepezil (Aricept) 10 MG tablet Take 10 mg by mouth at bedtime. 023 Active Continuous Blood Gluc Sensor (FreeStyle Yong 2 Sensor) misc CHANGE EVERY 2 WEEKS DIRECTED 023 Active Continuous Blood Gluc Director [place] (FreeStyle Yogn 2 [place]) device USE TO TEST BLOOD SUGAR DIRECTED 023 Active lidocaine (Lidoderm) 5 % patch Apply 1 patch topically in the morning. Remove & discard patch within 12 hours or as directed by . 30 patch 3 023 Active albuterol 108 (90 Base) MCG/ACT inhalerIndicatio ns:Chronic obstructive pulmonary disease, unspecified COPD type (CMS/HCC) ([facility]) INHALE 2 PUFFS BY MOUTH EVERY 4 TO 6 HOURS NEEDED 8.5 g 1 023 Active fluticasone (Flovent HFA) 110 MCG/ACT inhalerIndicatio ns:Chronic obstructive pulmonary disease, unspecified COPD type (CMS/HCC) ([facility]) INHALE 2 PUFFS BY MOUTH TWICE DAILY. RINSE MOUTH AFTER USING. 12 g 5 023 Active TRUEplus Lancets 33G misc USE SIX TIMES DAILY DIRECTED 200 each 11 023 Active dexlansoprazole (Dexilant) [address] capsuleIndicatio ns:Gastroesophag eal reflux disease, unspecified whether esophagitis present TAKE 1 CAPSULE BY MOUTH EVERY MORNING 90 capsule 3 024 Active lisinopril 5 MG tablet TAKE 1 TABLET BY MOUTH EVERY DAY 90 tablet 024 Active Lidocaine 5 % creamIndications :Left wrist pain,Lumbar radiculopathy Apply topically bid 30 g 3 024 Active Umeclidinium Erick (Incruse Ellipta) 62.5 MCG/ACT aerosol powderIndication s:Chronic obstructive pulmonary disease, unspecified COPD type (CMS/HCC) ([facility]) INHALE 1 PUFF BY MOUTH EVERY DAY AT THE SAME TIME RINSE MOUTH AFTER USING 30 each 025 Active fluticasone (Flonase) 50 MCG/ACT nasal sprayIndications :Allergic rhinitis, unspecified seasonality, unspecified trigger INSTILL 1 SPRAY IN EACH NOSTRIL ONCE DAILY 48 g 3 01/08/20 25 2:12 PM EST 025 Active FLUoxetine (PROzac) 40 MG capsule TAKE 1 CAPSULE BY MOUTH EVERY MORNING 90 capsule 08/29/2 025 Active docusate sodium (Colace) 100 MG capsuleIndicatio ns:Constipation, unspecified constipation type TAKE 1 CAPSULE BY MOUTH EVERY EVENING 90 capsule Active Embecta Pen Needle Asuncion 32G X 4 MM miscIndications: Type 2 diabetes mellitus with chronic kidney disease, with long-term current use of insulin, unspecified CKD stage (HCC) USE DIRECTED FOUR TIMES DAILY 100 each 3 025 Active atorvastatin (Lipitor) 20 MG tabletIndication s:Dyslipidemia TAKE 1 TABLET BY MOUTH AT BEDTIME 90 tablet 01/08/20 25 2:12 PM EST 025 Active levothyroxine (Synthroid, Levoxyl) 112 MCG tabletIndication s:Other specified hypothyroidism,A utoimmune thyroiditis Take 1 tablet (112 mcg) by mouth in the morning. 30 tablet 01/08/20 25 2:12 PM EST 025 Active pregabalin (Lyrica) 150 MG capsuleIndicatio ns:Chronic lumbar radiculopathy Take 1 capsule (150 mg) by mouth 2 times daily. 60 capsule 01/08/20 25 2:12 PM EST 025 Active senna (Senokot) 8.6 MG tabletIndication s:Constipation, unspecified constipation type TAKE 1 TABLET BY MOUTH TWICE DAILY IN THE MORNING AND IN THE EVENING FOR CONSTIPATION 60 tablet 01/08/20 25 2:12 PM EST 025 Active dilTIAZem CD (Cardizem CD) 180 MG 24 hr capsuleIndicatio ns:Essential hypertension Take 1 capsule (180 mg) by mouth at bedtime. 30 capsule 01/08/20 25 2:12 PM EST 025 Active glucose blood (FREESTYLE LITE) test stripIndications :Type 2 diabetes mellitus with chronic kidney disease, with long-term current use of insulin, unspecified CKD stage (HCC) USE DIRECTED TO TEST BLOOD SUGAR UP TO SIX TIMES DAILY 150 strip 1 Active cyanocobalamin (Vitamin B-12) 1000 MCG tablet TAKE 1 TABLET BY MOUTH EVERY MORNING 90 tablet 1 025 Active D3 Super Strength 50 MCG (2000 UT) capsuleIndicatio ns:Vitamin D deficiency, unspecified TAKE 1 CAPSULE BY MOUTH EVERY MORNING 90 capsule 1 11/20/2 025 Active acetaminophen (Tylenol 8 Hour) 650 MG ER tabletIndication s:Lumbar radiculopathy TAKE 1 TABLET BY MOUTH EVERY 8 HOURS NEEDED. SWALLOW WHOLE WITH WATER. DO NOT BREAK, CRUSH, DISSOLVE OR CHEW 60 tablet 3 Active nicotine (Nicoderm CQ) 14 MG/24HR patchIndications :Tobacco dependence syndrome Place 1 patch on the skin 1 (one) time each day at the same time. 30 patch 025 2025 Active glucose blood (FREESTYLE LITE) test stripIndications :Type 2 diabetes mellitus with chronic kidney disease, with long-term current use of insulin, unspecified CKD stage ([facility]) USE TO TEST BLOOD SUGAR UP TO SIX TIMES DAILY 150 each 024 2024 Discontinued acetaminophen (Tylenol 8 Hour) 650 MG ER tabletIndication s:Left wrist pain,Lumbar radiculopathy,Pa in TAKE 1 TABLET BY MOUTH EVERY 8 HOURS NEEDED. SWALLOW WHOLE WITH WATER. DO NOT BREAK, CRUSH, DISSOLVE OR CHEW 60 tablet 3 024 2024 Discontinued(R eorder (will not trigger notification to Pharmacy)) cyanocobalamin (Vitamin B-12) 1000 MCG tablet TAKE 1 TABLET BY MOUTH EVERY MORNING 90 tablet 1 025 2024 Discontinued D3 Super Strength 50 MCG (1999 UT) capsuleIndicatio ns:Vitamin D deficiency, unspecified TAKE 1 CAPSULE BY MOUTH EVERY MORNING 90 capsule 1 025 2024 Discontinued levothyroxine (Synthroid, Levoxyl) 112 MCG tabletIndication s:Other specified hypothyroidism,A utoimmune thyroiditis TAKE 1 TABLET BY MOUTH EVERY MORNING 30 tablet 025 2024 Discontinued(R eorder (will not trigger notification to Pharmacy)) senna (Senokot) 8.6 MG tabletIndication s:Constipation, unspecified constipation type TAKE 1 TABLET BY MOUTH TWICE DAILY IN THE MORNING AND IN THE EVENING FOR CONSTIPATION 60 tablet 025 2024 Discontinued(R eorder (will not trigger notification to Pharmacy)) dilTIAZem CD (Cardizem CD) 180 MG 24 hr capsuleIndicatio ns:Essential hypertension TAKE 1 CAPSULE BY MOUTH AT BEDTIME 30 capsule 025 2024 Discontinued(R eorder (will not trigger notification to Pharmacy)) pregabalin (Lyrica) 150 MG capsuleIndicatio ns:Chronic lumbar radiculopathy TAKE 1 CAPSULE BY MOUTH TWICE DAILY IN THE MORNING AND IN THE EVENING 60 capsule 025 2024 Discontinued(R eorder (will not trigger notification to Pharmacy)) Active Problems Problem Noted Date Diagnosed Date Left wrist pain 02/08/2024 Assessment & Plan (02/08/2024 11:29 AM EST): Recent fall, pain to left wrist. Unable to extend past 45 degrees and baum snot flex past 90 degrees. -ordered wrist XR 02/08/24 Falls 02/08/2024 Assessment & Plan (02/08/2024 11:30 AM EST): Has reported recent falls. Discussed safety precautions round his house. Pt does use a cane. -has follow-up with PCP. Leukocytosis 09/29/2022 Anemia in chronic kidney disease 01/18/2021 Multiple renal cysts 03/29/2019 Type 2 diabetes mellitus wit h diabetic chronic kidney disease 03/29/2019 Overview (02/08/2024): Following with Zeferino: STAN Rothman Lab Results Component Value Date HGBA1C 10.1 (A) 09/29/2022 Microalbumin: established CKD, following with Dr. Gomez Eye exam: discuss at follow up Foot exam: discuss at follow up Dental: discuss at follow up PNA: UTD Tdap/Td: UTD ACEi/ARB: yes Statin: yes ASA: yes Lipids: Lab Results Component Value Date CHOLESTEROL 132 04/23/2021 LDLCHOL 74 04/23/2021 HDLCHOL 35 (L) 04/23/2021 Lifestyle: Encouraged regular movement and aerobic exercise for improved glycemic control Encouraged daily foot checks Encouraged lean protein snacks and to avoid foods high in sugar and simple carbohydrates Medications: Tradjenta 5mg daily Novolog 7-19 units AC Lantus 44 unis at bedtime CGM in place Treatment Goals: A1c goal: <7% FBG goal: <130 2 hour post prandial goal: <180 Assessment & Plan (02/08/2024 11:34 AM EST): Has not seen PCP in over a year. Ordered labs and scheduled follow-up with PCP. Acquired hypothyroidism 03/05/2018 Overview (12/08/2022): Continues with levothyroxine 112 mcg daily Assessment & Plan (12/08/2022 9:38 PM EDT): Check TSH Assessment & Plan (10/09/2022 7:26 PM EDT): Update TSH at next appt Hypertension 09/29/2017 Overview (10/09/2022): BP goal < 140/90 mmHg BP well controlled in office Continues with current med regimen: Lisinopril 5mg daily Cardizem 180mg daily Dyslipidemia 09/29/2017 Lumbar radiculopathy 05/27/2016 Overview (12/08/2022): Lumbar Xray Impression: Stable grade 1 anterior spondylolysis of L5-S1 and grade 1 anterior spondylolysis. Assessment & Plan (02/08/2024 11:28 AM EST): Acute on chronic back pain. Given pt had pain last over a year ago, will reevaluate. XR in 2022 showed Stable grade 1 anterior spondylolysis of L5-S1 and grade 1 anterior spondylolysis. -ordered Lumbar XR 02/08/24 Assessment & Plan (12/08/2022 9:37 PM EDT): No red flag symptoms Continues with APAP and Lyrica 150mg daily Describes pain as mod-severe Referrals: physical therapy referral placed Assessment & Plan (10/09/2022 7:30 PM EDT): Continues with APAP and Lyrica 150mg daily Describes pain as mod-severe Pt strongly requesting to re-start Percocet as reports was the only thing that has helped his pain. Per chart review, was discontinued by previous PCP due to concern for overdose in July 2021 Due for imaging, will check XR of lumbar and thoracic spine, as well as right shoulder (pt pt request) Tobacco dependence syndrome 11/02/2015 Chronic obstructive lung disease 08/07/2013 Overview (10/09/2022): Continues with Incruse Ellipta 62.5 mcg/act, 1 puff daily Stage 3 chronic kidney disease (CMS/HCC) 013 Overview (10/09/2022): Following with Dr. Gomez Last Cr 1.52 and eGFR Sep Encouraged to avoid NSAIDs and other nephrotoxic agents Microalbuminuria 12/08/2011 Depressive disorder 08/12/2011 Resolved Problems Problem Noted Date Diagnosed Date Resolved Date Cigarette smoker 01/02/2012 07/07/2023 Encounters Date Type Department Care Team Description 01/23/2025 1:15 PM EST Office Visit [address] [phone] Rosaura Queen MD Acquired hypothyroidism (Primary Dx); Type 2 diabetes mellitus with chronic kidney disease, with long-term current use of insulin, unspecified CKD stage (HCC); Chronic obstructive pulmonary disease, unspecified COPD type (CMS/HCC) (HCC); Stage 3 chronic kidney disease, unspecified whether stage 3a or 3b CKD (CMS/HCC) (HCC); Lumbar radiculopathy; Tobacco dependence syndrome 01/23/2025 Orders Only [facility] [address] [place], [place] [phone] Lynette Gerber FNP 01/23/2025 Travel 01/22/[address] [phone] Rosaura Queen MD chart prep 01/09/[address] [phone] Lynette Gerber FNP Vitamin D deficiency, unspecified 01/08/2025 Patient Outreach [address] [address] Rosaura Queen MD Pre-visit Planning ((Unable to reach for PVP screening, LVM) to be completed in office ) 12/28/2024 Refill [facility] [address] [place] [address] Phalen Lynette, COINING PRESS OPERATOR Type 2 diabetes mellitus with chronic kidney disease, with long-term current use of insulin, unspecified CKD stage (HCC) 12/26/2024 Refill [facility] [address] [place] [address] Phalen, Lynette, COINING PRESS OPERATOR Other specified hypothyroidism; Autoimmune thyroiditis; Chronic lumbar radiculopathy; Constipation, unspecified constipation type; Essential hypertension 12/25/2024 Refill [facility] [address] [place] [address] Phalen, Lynette, COINING PRESS OPERATOR Essential hypertension; Other specified hypothyroidism; Autoimmune thyroiditis; Constipation, unspecified constipation type; Chronic lumbar radiculopathy 12/12/2024 Refill [facility] [address] [place] [address] Phalen Lynette, COINING PRESS OPERATOR Chronic lumbar radiculopathy 12/10/2024 Refill [facility] [address] [place] [address] Phalen, Lynette, COINING PRESS OPERATOR Dyslipidemia; Constipation, unspecified constipation type; Essential hypertension; Other specified hypothyroidism; Autoimmune thyroiditis 12/06/2024 Refill [facility] [address] [place] [address] Phalen Lynette, COINING PRESS OPERATOR Type 2 diabetes mellitus with chronic kidney disease, with long-term current use of insulin, unspecified CKD stage (HCC) 11/21/2024 Telephone [facility] [address] [place] [address] Phalen Lynette, COINING PRESS OPERATOR 11/18/2024 Refill [facility] [address] [place] [address] Phalen, Lynette, COINING PRESS OPERATOR Constipation, unspecified constipation type; Other specified hypothyroidism; Autoimmune thyroiditis; Essential hypertension; Chronic lumbar radiculopathy 11/05/2024 Telephone [facility] [address] [place], [place] [phone] Phalen, Lynette, COINING PRESS OPERATOR Change PCP from Last 3 Months Immunizations Immunization Administration Dates Next Due Influenza injectable quadriv alent IIV4 with preservative 12/26/2016,01/25/2016,11/03/2014 Influenza, High Dose Seasona l, Preservative Free 10/06/2014 Influenza, IIV3, injectable 01/13/2014, 1 Influenza, Split (incl. chase fied surface antigen) 11/07/2012,01/02/2012 Pfizer Covid-19 Vaccine 12+ Bivalent 09/29/2022 Pneumococcal Conjugate PCV 13 06/14/2019, 015 Pneumococcal Polysaccharide PPSV23 02/15/2006, TD (adult), 2 Lf tetanus tox oid, preservative free, adsorbed 12/22/2004 Tdap 07/30/2022,01/23/2015 Zoster, Recombinant 07/21/2020,05/18/2020 Zoster, live 12/26/2016 Family History Medical History Relation Name Comments Cataracts Mother Relation Name Status Comments Mother Social History Tobacco Use Types Packs/Day Years Used Date Smoking Tobacco: Every Day Cigarettes Smokeless Tobacco: Never Tobacco Cessation:Ready to Q uit: Not Asked; Counseling Given: Not Answered Alcohol Use Standard Drinks/Week Comments Not Currently [...] Orientation Straight 07/21/2023 4: 52 PM EDT Last Filed Vital Signs Vital Sign Reading [...] Mass Index 29.49 01/23/2025 1:26 PM EST Plan of Treatment Health Maintenance Due Date Last Done Comments Diabetes: Foot Exam 1950 Eye Exam 1950 Alcohol/Substance Use Screening 1952 RSV Patients and Patients Aged 60 years or older (1 - 1-dose 75+ series) 07/12/2015 Depression Screening 09/30/2023 09/29/2022, 09/30/19 23 COVID-19 Vaccine ( season) 2024 09/29/2022, 02/01/2021, 04/30/2020, Additional history exists Influenza Vaccine (#1) 2024 7, 01/25/2016, 11/03/2014, Additional history exists SDOH Screening 11/29/2024 11/30/2023 Lipid Panel 02/07/2025 01/23/2025, 01/20, 04/23/2021 Diabetes: Hemoglobin A1C 04/23/2025 025, 02/08/2024, 09/29/2022, Additional history exists Tobacco Screening 01/23/2026 01/23/2025 DTaP/Tdap/Td Vaccines (3 - Td or Tdap) 07/30/2032 07/30/2022, 01/23/2015, 12/22/2004 Pneumococcal Vaccine: 50+ Years Completed 06/14/2019, 11/20/2014, 02/15/2006, Additional history exists Zoster Vaccines Completed 07/21/2020, 04/21, 12/26/2016 HIB Vaccines Aged Out No longer eligi ble based on patient's age to complete this topic HPV Vaccines Aged Out No longer eligi ble based on patient's age to complete this topic Hepatitis A Vaccines Aged Out No long er eligible based on patient's age to complete this topic Hepatitis B Vaccines Aged Out No long er eligible based on patient's age to complete this topic IPV Vaccines Aged Out No longer eligi ble based on patient's age to complete this topic Meningococcal B Vaccine Aged Out No l onger eligible based on patient's age to complete this topic Meningococcal Vaccine Aged Out No keon marco a eligible based on patient's age to complete this topic RSV under 20 months Aged Out No longe r eligible based on patient's age to complete this topic Rotavirus Vaccines Aged Out No longer eligible based on patient's age to complete this topic Goals Goal Patient Goal Type Associated Problems Recent Progress Patient-Stated? Author Help patients manage their type 2 diabetes Care Plan Help patients manage their type 2 diabetes Neela Nunez Weekly blood pressure task Care Plan Weekly blood pressure task No Neela Ronquillo Help patients manage their type 2 diabetes Care Plan Help patients manage their type 2 diabetes Neela Nunez Patient has chronic kidney disease Care Plan Patient has chronic kidney disease Neela Nunez Weekly blood pressure task Care Plan Weekly blood pressure task No Neela Ronquillo Patient has chronic kidney disease Care Plan Patient has chronic kidney disease Neela Nunez Weekly blood pressure task Care Plan Weekly [...] chronic kidney disease No Rosaura Queen MD Procedures Procedure Name Priority Date/Time Associated Diagnosis Comments T4, FREE Routine 01/23/2025 2:17 PM EST VITAMIN B12 Routine 01/23/2025 2:17 PM EST TSH W/REFLEX TO FT4 Routine 01/23/2025 2 :17 PM EST Type 2 diabetes mellitus with chronic kidney disease, with long-term current use of insulin, unspecified CKD stage (HCC) VITAMIN D,25-OH,TOTAL,IA Routine 01/23/2025 2:17 PM EST [...] use of insulin, unspecified CKD stage (HCC) from Last 3 Months Results * Vitamin D, 25-Hydroxy, Total, Immunoassay (01/23/2025 2:17 PM EST) Vitamin D 25-OH Total 39.1 >30 ng/mL [facility] Comment: Health Based Reference Values*< 20 ng/mL [id number] ng/mL Insufficient> 30 ng/mL Sufficient*Manuel LE. N [...] Diallo MD LAB BLOOD ORDERABLES Final Result [facility] [address], [place] [phone] * (ABNORMAL) TSH with Reflex to Free T4 (01/23/2025 2:17 PM EST) TSH reflex Free T4 10.91(H) 0.32 - 4.0 uIU/mL [facility] Blood Venous blood specimen / Unknown 01/23/2025 2:17 PM EST 01/23/2025 3:59 PM EST us Rosaura Diallo MD LAB BLOOD ORDERABLES Final Result [facility] [address] [place] [phone] * (ABNORMAL) CBC auto differential (01/23/2025 2:17 PM EST) White Blood Count 8.4 4.8 - 10.8 X10*3/uL [facility] Red Blood Count 4.10(L) 4.60 - 5.80 X10*6/uL [facility] Hemoglobin 11.2(L) 14.0 - 18.0 g/dl [facility] Hematocrit 34.7(L) 42.0 - 52.0 % [facility] Mean Corpuscular Volume 84.6 80.0 - 98.0 fL [facility] Mean Corpuscular Hemoglobin 27.3 27.0 - 33.0 pg [facility] Mean Corpuscular HGB Conc 32.3 31.0 - 36.0 g/dl [facility] Red Cell Distribution Width 15.1 11.0 - 16.0 % [facility] Platelet Count 263 160 - 400 X10*3/uL [facility] Mean Platelet Volume 11.0 9.4 - 12.4 fL [facility] Neutrophils Percent Auto 47.5 45 - 73 % [facility] Imm Gran Pct Auto 0.2 0.0 - 0.4 % [facility] Lymphocytes Percent Auto 40.4(H) 20 - 40 % [facility] Monocytes Percent Auto 7.5 2 - 11 % [facility] Eosinophils Percent Auto 3.2 0 - 4 % [facility] Basophils Percent Auto 1.2 0 - 2 % [facility] NRBC Pct Auto 0.0 0.0 - 0.2 /100WBC [facility] Neutrophils Absolute Auto 4.0 2.0 - 8.3 x10*3/uL [facility] Imm Gran Abs Auto 0.02 0.00 - 0.03 X10*3/uL [facility] Lymphocytes Absolute Auto 3.4 1.2 - 4.9 X10*3/uL [facility] Monocytes Absolute Auto 0.6 0.1 - 1.2 X10*3/uL [facility] Eosinophils Absolute Auto 0.3 0.0 - 0.4 X10*3/uL [facility] Basophils Absolute Auto 0.1 0.0 - 0.2 X10*3/uL [facility] NRBC Abs Auto 0.000 0.0 - 0.012 X10*3/uL [facility] Blood Venous blood specimen / Unknown 01/23/2025 2:17 PM EST 01/23/2025 3:59 PM EST Rosaura Diallo MD LAB BLOOD ORDERABLES Final Result Performing Organization Address City/[facility]/ZIP Co de Phone Number [facility] [address] [place] [phone] * T4, Free (01/23/2025 2:17 PM EST) Pathologist [facility] Free T4 (Free Thyroxine) 0.81 0.71 - 1.85 ng/dL [facility] 01/23/2025 2:17 PM EST 01/23/2025 3:59 PM EST Rosaura Diallo MD LAB BLOOD ORDERABLES Final Result Performing Organization Address [facility]/ZIP Co de Phone Number [facility] [address] [place] [phone] * (ABNORMAL) Vitamin B12 (01/23/2025 2:17 PM EST) Pathologist [facility] Vitamin B12 1,183(H) 200 - 900 pg/mL [facility] Comment:NORMAL 200-900 PG/ML INDETERMINATE 160-199 PG/ML DEFICIENT < 160 PG/ML 01/23/2025 2:17 PM EST 01/23/2025 3:59 PM EST us Lynette GA LAB BLOOD ORDERABLES Final Res ult Performing Organization Address City/[facility]/ZIP Co de Phone Number [facility] [address] [place] [phone] * (ABNORMAL) Lipid Panel, Standard (01/23/2025 2:17 PM EST) Triglycerides 144 <150 mg/dL [facility] Comment:Desirable Triglyceri de: less than 150 mg/dLBorderline High Triglyceride 150-199 mg/dLHigh Triglyceride: 200-499 mg/dLVery High Triglyceride: greater than or equal to 5OO mg/dL Cholesterol 140 <200 mg/dL [facility] Comment:Desirable Cholestero l: less than 200 mg/dLBorderline High Cholesterol: 200-239 mg/dLHigh Cholesterol: greater than 239 mg/dL LDL Cholesterol Calculated 76 <100 mg/dL [facility] Comment:Desirable LDL: less than 100 mg/dLNear Optimal/Above Optimal LDL: 110- 129 mg/dLBorderline High LDL: 130-159 mg/dLHigh LDL: 160-189 mg/dLVery High LDL: greater than or equal to 190 mg/dL HDL Cholesterol 36(L) >40 mg/dL [facility] Comment:Desirable HDL: great er than 40 mg/dL Note: This HDL assay may give artificially low results in patients with liver disease. Blood Venous blood specimen / Unknown 01/23/2025 2:17 PM EST 01/23/2025 3:59 PM EST us Rosaura Diallo MD LAB BLOOD ORDERABLES Final Result Performing Organization Address City/[facility]/ZIP Co de Phone Number [facility] [address] [place] [phone] * (ABNORMAL) Comprehensive Metabolic Panel (01/23/2025 2:17 PM EST) Sodium 139 135 - 145 mmol/L [facility] Potassium 5.2(H) 3.3 - 5.1 mmol/L [facility] Chloride 104 96 - 108 mmol/L [facility] Carbon Dioxide 28 22 - 29 mmol/L [facility] Anion Gap 12 12 - 20 [facility] Urea Nitrogen (BUN) 14 9 - 16 mg/dL [facility] Creatinine, Serum 1.83(H) 0.5 - 1.4 mg/dL [facility] Estimated Glomerular Filt Rate 35 [facility] Comment:Chronic Kidney Disea se: Estimated GFR < 60 mL/min/[id number] Kidney Disease: Estimated GFR < 15 mL/min/1.73m2 Glucose 267(H) 60 - 115 mg/dL [facility] Calcium 9.5 8.4 - 10.2 mg/dL [facility] Bilirubin, Total 0.3 0.0 - 1.0 mg/dL [facility] Aspartate Amino Transferase 20 5 - 37 U/L [facility] Alanine Aminotransferase 6 0 - 40 U/L [facility] Total Protein 7.7 6.5 - 8.0 g/dL [facility] Albumin Level 4.4 3.5 - 5.0 g/dL [facility] Alkaline Phosphatase 88 39 - 117 U/L [facility] Blood Venous blood specimen / Unknown 01/23/2025 2:17 PM EST 01/23/2025 3:59 PM EST us Rosaura Diallo MD LAB BLOOD ORDERABLES Final Result [facility] [address] [place] [phone] * (ABNORMAL) POCT Hgb A1c (01/23/2025 1:29 PM EST) Hemoglobin A1C 10.2(A) 4.0 - 5.7 % QC Media Lot # [id number] Lot# Expiration Date Blood 01/23/2025 1:29 PM EST Rosaura Diallo MD POINT OF CARE TEST EN TER/EDIT ORDERABLES Final Result * (ABNORMAL) POCT Glucose (01/23/2025 1:28 PM EST) Glucose Blood, POC 361(A) 60 - 200 mg/dL QC Media Lot # [id number] Lot# Expiration Date Blood Capillary blood specimen / Unknown 01/23/2025 1:28 PM EST Rosaura Diallo MD POINT OF CARE TEST EN TER/EDIT ORDERABLES Final Result from Last 3 Months Additional Health Concerns Active Problems Noted Date [...] 01/23/2025 Patient has chronic kidney disease 01/23/2025 Insurance [id number] (HMO D-SNP) Advance Directives Documents on File Type Date Recorded Patient Operating System Programmer Expl anation Advance Directives and Living Will 05/10/2024 12:19 PM Health Care Proxy Care Teams Booth Cashier Relationship Specialty Start Date End Date Rosaura Queen MD [address] [place] [id number] PCP - General Internal Medicine 12/30/24
--- OUTSIDE RECORDS SUMMARY | 2025-01-23 19:29 | XMS_ITS | Encounter Summary ---
Author Organization [employer] Address [address] 7t [place] [address] Care Team Providers Care Gluing Crew Leader Name Role Phone Rosaura Queen MD Primary Care Provide r Encounter Details Date Type Department Care Team ([facility] st Contact Info) Description 01/23/2025 Orders Only [facility] [address] [place], [place] [phone] Lynette Gerber, SURY [address] [place] [address] Social History Tobacco Use Types Packs/Day Years [...] PM EDT documented as of this encounter Plan of Treatment Not on file documented as of this encounter Goals Goal [...] VITAMIN B12 Routine 01/23/2025 2:17 PM EST documented in this encounter Results * T4, Free (01/23/2025 2:17 PM EST) Free T4 (Free Thyroxine) 0.81 0.71 - 1.85 ng/dL [facility] 01/23/2025 2:17 PM EST 01/23/2025 3:59 PM EST us Rosaura Diallo MD LAB BLOOD ORDERABLES Final Result Performing Organization Address [facility] Co de Phone Number [facility] [address] [place] [phone] * (ABNORMAL) Vitamin B12 (01/23/2025 2:17 PM EST) Vitamin B12 1,183(H) 200 - 900 pg/mL [facility] Comment:NORMAL 200-900 PG/ML INDETERMINATE 160-199 PG/ML DEFICIENT < 160 PG/ML 01/23/2025 2:17 PM EST 01/23/2025 3:59 PM EST us Lynette GA LAB BLOOD ORDERABLES Final Res ult Performing Organization Address [facility]/ZIP Co de Phone Number [facility] [address] [place] [address] [phone] documented in this encounter Visit Diagnoses Not on filedocumented in this encounter Additional Health Concerns Active [...] documented as of this encounter Care Teams Gluing Crew Leader Relationship Specialty Start Date End Date Rosaura Queen MD [address] [place] [phone] PCP - General Internal Medicine 12/30/24 documented as of this encounter
--- OUTSIDE RECORDS SUMMARY | 2025-01-23 19:29 | XMS_ITS | Encounter Summary ---
Author Organization [email or web address] Address [address] 7[address] [place] [address] Care Team Providers Care Nurses Medical Assistants Phlebotomists Name Role Phone Rosaura Queen MD Primary Care Provide r Reason for Visit * Reason Comments Med Refill Encounter Details Date Type Department Care Team (Late st Contact Info) Description 12/07/2023 Refill [facility] [address] [place] [address] Lynette Gerber, SURY [address] [place] [address] Constipation, unspecified constipation type Social History Tobacco Use Types Packs/Day Years Used Date Smoking Tobacco: Every Day Cigarettes Smokeless Tobacco: Never Alcohol Use Standard Drinks/Week Comments Not Currently 0 (1 standard drink = 0.6 oz pur e alcohol) Depression Answer Date Recorded Patient Health Questionnaire-9 Score 8 09/29/2022 Housing Stability Answer Date Recorded What is your housing situation today? I have [place] 11/30/[address] you [...] on file documented as of this encounter Visit Diagnoses Diagnosis Constipation, unspecified constipation type documented in this encounter Additional Health Concerns Assessment Noted Time PHQ-9 Depression Total Score: 8 09/30/19 23 10:18 AM EDT documented as of this encounter Care Teams Nurses Medical Assistants Phlebotomists Relationship Specialty Start Date End Date Rosaura Queen MD [address] [place] [address] PCP - General Internal Medicine 12/30/24 documented as of this encounter
--- OUTSIDE RECORDS SUMMARY | 2025-01-23 19:29 | XMS_ITS | Encounter Summary ---
Author Organization [employer] Address [address] 7[address] [place] [address] Care Team Providers Care Operational Meteorologist Name Role Phone Rosaura Queen MD Primary Care Provide r Encounter Details Date Type Department Care Team (Latest Contact Info) Description 01/23/2025 Travel Social History Tobacco Use Types Packs/Day Years [...] Queen MD documented as of this encounter Visit Diagnoses Not on filedocumented [...] documented as of this encounter Care Teams Operational Meteorologist Relationship Specialty Start Date End Date Rosaura Queen MD [address] [place] [phone] PCP - General Internal Medicine 12/30/24 documented as of this encounter
--- OUTSIDE RECORDS SUMMARY | 2025-01-23 19:29 | XMS_ITS | Encounter Summary ---
Author Organization [employer] Address [address] [place] [address] Care Team Providers Care Mail Sorting Supervisor Name Role Phone Lynette Gerber Primary Care Provider Yasmine Lira Primary Care Provider [phone] Rosaura Queen MD Primary Care Provide r Encounter Details Date Type Department Care Team (Late st Contact Info) Description 03/25/2022 Orders Only [facility] MED & PEDS [address] [place] [address] Arti Garrison LPN Social History Tobacco Use Types Packs/Day Years Used Date Smoking Tobacco: Never Assessed Sex and Gender Information Value Date Recorded Sex Assigned at Male 12/20/2021 10:18 AM EDT Legal Sex Male 10:18 AM EDT Gender Identity Male 12/20/2021 10:18 AM EDT Sexual Orientation Straight 07/21/2023 4: 52 PM EDT documented as of this encounter Plan of Treatment Not on file documented as of this encounter Visit Diagnoses Not on filedocumented in this encounter Care Teams Mail Sorting Supervisor Relationship Specialty Start Date End Date Lynette Gerber FNP [address] [place] [address] PCP - General Family Medicine 03/21/22 07/31/22 Yasmine Lira FNP [address] [place] [address] PCP - General Family Medicine 08/01/22 08/15/22 Rosaura Queen MD [address] [place] [address] PCP - General Internal Medicine 12/30/24 documented as of this encounter
--- OUTSIDE RECORDS SUMMARY | 2025-01-23 19:30 | XMS_ITS | Encounter Summary ---
Author Organization [employer] Address [address] 7[address] [place] [address] Care Team Providers Care Hl7 Developer Name Role Phone Lynette Gerber Primary Care Provider Yasmine Lira Primary Care Provider [phone] Rosaura Queen MD Primary Care Provide r Encounter Details Date Type Department Care Team (Late st Contact Info) Description 05/09/2022 Orders Only [facility] MED & PEDS [address] [place] [address] Arti Garrison LPN Social History Tobacco Use [...] on filedocumented in this encounter Care Teams Hl7 Developer Relationship Specialty Start Date End Date Lynette Gerber FNP [address] [place] [address] PCP - General Family Medicine 03/21/22 07/31/22 Yasmine Lira FNP [address] [place] [address] PCP - General Family Medicine 08/01/22 08/15/22 Rosaura Queen MD [address] [place] [address] PCP - General Internal Medicine 12/30/24 documented as of this encounter
--- OUTSIDE RECORDS SUMMARY | 2025-01-23 19:30 | XMS_ITS | Clinical Summary ---
Author Organization [facility] Address [address] [place] [address] Phone Care Team Providers Care Parish Visitor Name Role Phone WagnerParris BONITA Primary Care Provider [phone] Allergies No known active allergies Medications atorvastatin (LIPITOR) 20 MG tablet Comments: Filled Date: Mar 01 2017 12:00AM Patient Notes: TAKE ONE TABLET AT BEDTIME Duration: 12/01/19 17 Active dexlansoprazole (DEXILANT) [address] capsule Comments: Filled Date: Mar 01 2017 12:00AM Patient Notes: TAKE 1 CAPSULE EVERY DAY IN THE MORNING Duration: 30 02/02/20 17 Active dilTIAZem CD (CARDIZEM CD) 120 MG 24 hr capsule Comments: Filled Date: Mar 01 2017 12:00AM Patient Notes: TAKE ONE CAPSULE AT BEDTIME Duration: 30 12/01/19 17 Active docusate sodium (COLACE) 100 MG capsule Comments: Filled Date: Mar 01 2017 12:00AM Patient Notes: TAKE 1 CAPSULE EVERY DAY IN THE EVENING Duration: 30 02/02/20 17 Active Dulaglutide 1.5 MG/0.5ML solution pen-injector Comments: Filled Date: Mar 27 2017 12:00AM Patient Notes: INJECT ONE PEN (=1.5MG) SUBCUTANEOUSLY ONCE A WEEK DIRECTED Duration: 05/26/19 17 Active FLUoxetine (PROzac) 40 MG capsule Comments: Filled Date: Mar 01 2017 12:00AM Patient Notes: TAKE ONE CAPSULE EVERY MORNING Duration: 30 09/30/19 17 Active fluticasone (FLONASE) 50 MCG/ACT nasal spray Comments: Filled Date: Feb 01 2017 12:00AM Patient Notes: USE ONE SPRAY IN EACH NOSTRIL EVERY DAY Duration: 60 08/31/19 17 Active fluticasone HFA (FLOVENT HFA) 110 MCG/ACT inhaler Comments: Filled Date: Mar 01 2017 12:00AM Patient Notes: INHALE TWO PUFFS TWICE DAILY. RINSE MOUTH AFTER USING. Duration: 30 12/01/19 17 Active insulin aspart (NovoLOG) 100 UNIT/ML injection Comments: Filled Date: Jan 30 2017 12:00AM Patient Notes: INJECT 4 UNITS SUBCUTANEOUSLY THREE TIMES DAILY 15 MINUTES BEFORE MEAL S Duration: 01/25/20 17 Active levothyroxine (SYNTHROID, LEVOTHROID) 112 MCG tablet Comments: Filled Date: Mar 01 2017 12:00AM Patient Notes: TAKE ONE TABLET BY MOUTH EVERY MORNING Duration: 01/04/20 17 Active pregabalin (LYRICA) 150 MG capsule Comments: Filled Date: Mar 01 2017 12:00AM Patient Notes: TAKE 1 CAPSULE BY MOUTH TWICE DAILY IN THE MORNING AND IN THE EVENING Duration: 03/01/19 18 Active simethicone (MYLICON,GAS-X) 180 MG capsule Comments: Filled Date: Feb 01 2017 12:00AM Patient Notes: TAKE ONE CAPSULE THREE TIMES DAILY Duration: 05/18/19 17 Active terbinafine (LamISIL) 250 MG tablet Comments: Filled Date: Mar 01 2017 12:00AM Patient Notes: TAKE ONE TABLET BY MOUTH EVERY MORNING FOR THREE MONTHS Duration: 12/27/19 17 Active tiotropium (SPIRIVA) 18 MCG per inhalation capsule Comments: Filled Date: Mar 01 2017 12:00AM Patient Notes: USE 1 CAPSULE FOR INHALATION ONCE A DAY DO NOT SWALLOW CAPSULE Duration: 01/04/20 17 Active Aspirin Adult Low Strength 81 MG EC tablet Take 81 mg by mouth at bed time 10/23/19 20 Active cholecalciferol (VITAMIN D-3) 50 MCG (1999 UT) capsule 11/18/19 20 Active Tradjenta 5 MG tablet 11/18/19 20 Active oxyCODONE (ROXICODONE) 5 MG immediate release tablet TAKE 1 TABLET BY MOUTH EVERY TWELVE HOURS NEEDED FOR PAIN 10/30/19 20 Active Creon 98253-80266 units capsule 11/18/19 20 Active senna (SENOKOT) 8.6 MG tablet 11/18/19 20 Active Incruse Ellipta 62.5 MCG/INH aerosol powder 11/18/19 20 Active Albuterol Sulfate 108 (90 Base) MCG/ACT aerosol powder Inhale as needed Active sodium polystyrene (KAYEXALATE) 15 GM/60ML suspension Take as needed Acti ve acetaminophen (TYLENOL) 325 MG tablet Take 1 tablet by mouth every 4 (four) hours Active Fluocinonide 0.1 % cream Apply as needed Ac tive Glucose-Vitamin C 4-6 GM-MG chewable tablet Chew 1 tablet 1 (one) time each day Active omeprazole OTC (PriLOSEC OTC) 20 MG EC tablet Take 2 tablets by mouth 1 (one) time each day Active NovoLIN 70/30 FlexPen (70-30) 100 UNIT/ML injection INJECT 60 UNITS SUBCUTANEOUSLY BEFORE BREAKFAST AND 30 UNITS BEFORE SUPPER 10/09/19 Active metroNIDAZOLE (FLAGYL) 500 MG tablet metronidazole 500 mg tablet Active Ventolin HFA 108 (90 Base) MCG/ACT inhaler INHALE 2 PUFFS EVERY 4 TO 6 HOURS NEEDED 11/24/19 Active Cartia XT 180 MG 24 hr capsule Take 180 mg by mouth 1 (one) time each day 12/12/19 21 Active Narcan 4 MG/0.1ML liquid FOR SUSPECTED OPIOID OVERDOSE. SPRAY 0.1mL IN ONE NOSTRIL. REPEAT IN ALTERNATE NOSTRIL 2-3 MINUTES IF NEEDED. SEEK MEDICAL ATTENTION IMMEDIATELY EVEN IF PATIENT RESPONDS. 11/19/19 21 Active Active Problems Problem Noted Date Diagnosed Date Anemia in chronic kidney disease 01/18/2021 Hypertension 10/19/2020 Stage 3a chronic kidney disease 02/03/2020 Overview (02/24/2020): Update for Diagnosis Load Cigarette smoker 07/25/2019 Type 2 diabetes mellitus wit h diabetic chronic kidney disease 03/29/2019 Electrolyte imbalance 03/29/2019 Dyslipidemia 03/29/2019 Other specified hypothyroidism 03/29/2019 Multiple renal cysts 03/29/2019 Renal disorder due to type 2 diabetes mellitus 0 03/29/2019 Resolved Problems Problem Noted Date Diagnosed Date Resolved Date Hypertensive heart disease w [facility] congestive heart failure 10/16/2020 10/19/2020 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 10/19/2020 Anemia 03/29/2019 07/13/2021 Serum creatinine above reference range 03/29/2019 10/19/2020 Immunizations Immunization Administration Dates Next Due Influenza Split High Dose Preservative Free IM 0 10/06/2014 Influenza, Quadrivalent, With Preservative 01/31 Family History Medical History Relation Comments Diabetes Mother Relation Status Comments Father Unknown Mother Unknown Social History Tobacco Use Types Packs/Day Years Used Date Smoking Tobacco: Smoker, Current Status Unknown Smokeless Tobacco: Never Tobacco Cessation:Ready to Q uit: No Alcohol Use Standard Drinks/Week Comments No 0 (1 standard drink = 0.6 oz pur e alcohol) Sex and Gender Information Value Date Recorded Sex Assigned at Not on file Legal Sex Male 4:37 PM EST Gender Identity Not on file Sexual Orientation Not on file Last Filed Vital Signs Vital Sign Reading Time Taken Comments Blood Pressure 116/60 08/11/2022 10:47 AM EDT Pulse 70 08/11/2022 10:47 AM EDT Temperature - - Respiratory Rate 16 01/09/2018 12:00 PM EST Oxygen Saturation 95% 08/11/2022 10:47 AM EDT Inhaled Oxygen Concentration - - Weight 88.3 kg (194 lb 9.6 oz) 08/11/2022 10:47 AM EDT Height 160 cm (5' 3 ) 08/11/2022 10:47 AM EDT Body Mass Index 34.47 08/11/2022 10:47 AM EDT Plan of Treatment Health Maintenance Due Date Last Done Comments Diabetes: Ophthalmology Exam 03/29/2019 Diabetes: Pedal Pulse Checked 03/29/2019 Diabetes: Sensory Foot Exam 03/29/2019 Diabetes: Visual Foot Exam 03/29/2019 Pneumococcal Vaccine: 50+ Years (2 of 2 - PPSV23, PCV20, or PCV21) 08/09/2019 06/14/2019 Diabetes: Hemoglobin A1C 11/12/2020 08/12/2020 Influenza Vaccine (#1) 2024 , 10/06/2014 Pneumococcal Vaccine: Peds ( 0 to 5 Years) and At-Risk Patients (6 to 49 Years) Discontinued 06/14/2019 Hepatitis B Vaccine Aged Out No longe r eligible based on patient's age to complete this topic Procedures Procedure Name Priority Date/Time Associated Diagnosis Comments HEMOGLOBIN A1C (EXTERNAL RESULT ENTRY) Routine 08/12/2020 from Last 3 Months or Most Recently Relevant to Health Maintenance Results * Hemoglobin A1C (08/12/2020) Hemoglobin A1C 10.0 Glucose 234 Blood specimen (specimen) Venous blood / Unknown 08/12/2020 us Historical Provider LAB BLOOD ORDERABLES Alyx pruitt Result from Last 3 Months or Most Recently Relevant to Health Maintenance Insurance [address] [place] [address] [facility], [facility] [place] [address] [facility] ([id number]) [address] [place] [address] Care Teams Parish Visitor Relationship Specialty Start Date End Date Parris Edward NP [address] [place] [address] PCP - General Nurse Practitioner 01/19/21
--- OUTSIDE RECORDS SUMMARY | 2025-01-23 19:30 | XMS_ITS | Encounter Summary ---
Author Organization [employer] Address [address] [facility] 7t [place] [address] Care Team Providers Care Heat Treat Inspector Name Role Phone Lynette Gerber Primary Care Provider Yasmine Lira Primary Care Provider [phone] Rosaura Queen MD Primary Care Provide r Reason for Visit * Reason Comments Med Refill Encounter Details Date Type Department Care Team (Late st Contact Info) Description 07/31/2022 Refill [facility] MEDICINE [address] [place] [address] [facility] [address] [place] [address] Essential hypertension Social History Tobacco Use Types Packs/Day Years [...] as of this encounter Visit Diagnoses Diagnosis Essential hypertension Unspecified essential hypertension documented in this encounter Care Teams Heat Treat Inspector Relationship Specialty Start Date End Date Lynette Gerber FNP [address] [place] [address] PCP - General Family Medicine 03/21/22 07/31/22 Yasmine Lira FNP [address] [place] [address] PCP - General Family Medicine 08/01/22 08/15/22 Rosaura Queen MD [address] [place] [address] PCP - General Internal Medicine 12/30/24 documented as of this encounter
--- OUTSIDE RECORDS SUMMARY | 2025-01-23 19:31 | XMS_ITS | Encounter Summary ---
Author Organization [employer] Address [address] [place] [address] Care Team Providers Care Glue Machine Operator Name Role Phone Rosaura Queen MD Primary Care Provide r Encounter Details Date Type Department Care Team ([facility] st Contact Info) Description 08/30/2022 Orders Only [facility] MED & PEDS [address] [place] [address] Arti Garrison LPN Social History Tobacco Use Types Packs/Day Years Used Date Smoking Tobacco: Never Assessed Sex and Gender Information Value Date Recorded Sex Assigned at Male 12/20/2021 10:18 AM EDT Legal Sex Male 10:18 AM EDT Gender Identity Male 12/20/2021 10:18 AM EDT Sexual Orientation Straight 07/21/2023 4: 52 PM EDT COVID-19 Exposure Response Date Recorded In the last 10 days, have yo u been in contact with someone who was confirmed or suspected to have Coronavirus/COVID-19? No / Unsure 08/09/2022 9:50 AM EDT documented as of this encounter Plan of Treatment Not on file documented as of this encounter Visit Diagnoses Not on filedocumented in this encounter Care Teams Glue Machine Operator Relationship Specialty Start Date End Date Rosaura Queen MD [address] [place] [address] PCP - General Internal Medicine 12/30/24 documented as of this encounter
--- OUTSIDE RECORDS SUMMARY | 2025-01-23 19:32 | XMS_ITS | Encounter Summary ---
Author Organization [employer] Address [address] [place] [address] Care Team Providers Care Rooming House Inspector Name Role Phone Rosaura Queen MD Primary Care Provide r Reason for Visit * Reason Comments Med Refill Encounter Details Date Type Department Care Team (Late st Contact Info) Description 05/28/2024 Refill [facility] [address] [place] [address] Sanjuanita Petty MD [address] [place] [address] Dyslipidemia Social History Tobacco Use Types Packs/Day Years [...] as of this encounter Visit Diagnoses Diagnosis Dyslipidemia Other and unspecified hyperlipidemia documented in this encounter Additional Health Concerns Assessment Noted Time PHQ-9 Depression Total Score: 8 09/30/19 23 10:18 AM EDT documented as of this encounter Care Teams Rooming House Inspector Relationship Specialty Start Date End Date Rosaura Queen MD [address] [place] [address] PCP - General Internal Medicine 12/30/24 documented as of this encounter
--- OUTSIDE RECORDS SUMMARY | 2025-01-23 19:32 | XMS_ITS | Encounter Summary ---
Author Organization [employer] Address [address] [place] [address] Care Team Providers Care Paddock Judge Name Role Phone Rosaura Queen MD Primary Care Provide r Reason for Visit * Reason Comments Med Refill Encounter Details Date Type Department Care Team (Late st Contact Info) Description 04/30/2024 Refill [facility] [address] [place] [address] Lynette Gerber, SURY [address] [place] [address] Gastroesophageal reflux disease, unspecified whether esophagitis present Social History Tobacco Use Types Packs/Day Years [...] as of this encounter Visit Diagnoses Diagnosis Gastroesophageal reflux disease, unspecified whether esophagitis present documented in this encounter Additional Health Concerns Assessment Noted Time PHQ-9 Depression Total Score: 8 09/30/19 23 10:18 AM EDT documented as of this encounter Care Teams Paddock Judge Relationship Specialty Start Date End Date Rosaura Queen MD [address] [place] [address] PCP - General Internal Medicine 12/30/24 documented as of this encounter
--- OUTSIDE RECORDS SUMMARY | 2025-01-23 19:32 | XMS_ITS | Encounter Summary ---
Author Organization [employer] Address [address] [place] [address] Care Team Providers Care Cut Lace Machine Operator Name Role Phone Rosaura Queen MD Primary Care Provide r Reason for Visit * Reason Onset Date Comments Change PCP 11/05/2024 Encounter Details Date Type Department Care Team ([facility] Contact Info) Description 11/05/2024 Telephone [facility] MED & PEDS [address] [place], [place] [phone] Lynette Gerber FNP [address] [place] [address] Change PCP Social History Tobacco Use Types Packs/Day Years [...] PM EDT documented as of this encounter Miscellaneous Notes * Telephone Encounter - Nick Kraft - 11/05/2024 3:04 PM EDT Tc from Melony requesting to switch pcp due to pcp being more in [place], Wanting a pcp who speaksspanish. Not wanting to travel to [place]. Contact Melony at [phone] documented in this encounter Plan of Treatment Not on file documented as of this encounter Visit Diagnoses Not on filedocumented in this encounter Additional Health Concerns Assessment Noted Time PHQ-9 Depression Total Score: 8 09/30/19 23 10:18 AM EDT documented as of this encounter Care Teams Cut Lace Machine Operator Relationship Specialty Start Date End Date Rosaura Queen MD [address] [place] [id number] PCP - General Internal Medicine 12/30/24 documented as of this encounter
--- OUTSIDE RECORDS SUMMARY | 2025-01-23 19:33 | XMS_ITS | Encounter Summary ---
Author Organization [employer] Address [address] [facility] [address]t [place] [address] Care Team Providers Care Insurance Claims Analyst Name Role Phone Alessandro Smith MD Primary Care Provider Unava Lynette Lockett Primary Care Provider [phone] Yasmine Lira Primary Care Provider [phone] Rosaura Queen MD Primary Care Provide r Encounter Details Date Type Department Care Team (Late st Contact Info) Description 02/25/2022 Orders Only [facility] [address] [place] [address] Arti Garrison LPN Social History Tobacco Use [...] on filedocumented in this encounter Care Teams Insurance Claims Analyst Relationship Specialty Start Date End Date Alessandro Smith MD PCP - General Family Medicine 12/28/18 03/20/22 Lynette Gerber FNP [address] [place] [address] PCP - General Family Medicine 03/21/22 07/31/22 Yasmine Lira FNP [address] [place] [address] PCP - General Family Medicine 08/01/22 08/15/22 Rosaura Queen MD [address] [place] [address] PCP - General Internal Medicine 12/30/24 documented as of this encounter
--- OUTSIDE RECORDS SUMMARY | 2025-01-23 19:37 | XMS_ITS | Encounter Summary ---
Author Organization [employer] Address [address] [facility] [address] [place] [address] Care Team Providers Care Mechanical Maintenance Supervisor Name Role Phone Rosaura Queen MD Primary Care Provide r Reason for Visit * Reason Comments Med Refill Encounter Details Date Type Department Care Team (Late st Contact Info) Description 12/29/2022 Refill [facility] [address] [place] [address] Lynette Gerber FNP [address] [place] [address] Chronic obstructive pulmonary disease, unspecified COPD type (CMS/HCC) Social History Tobacco Use Types Packs/Day Years Used Date Smoking Tobacco: Every Day Cigarettes Smokeless Tobacco: Never Alcohol Use Standard Drinks/Week Comments Not Currently 0 (1 standard drink = 0.6 oz pur e alcohol) Depression Answer Date Recorded Patient Health Questionnaire-9 Score 8 09/29/2022 Housing Stability Answer Date Recorded What is your housing situation today? I have [place] 12/08/[address] you li ve. Do you have problems with any of the following? None of the above 12/08/2022 Food Insecurity Answer Date Recorded Within the past 12 months, y ou worried that your food would run out before you got money to buy more: Often true 12/08/2022 Within the past 12 months,th e food you bought just didn't last and you didn't have enough money to get more: Often true Transportation Answer Date Recorded In the past 12 months, has l ack of transportation kept you from medical appts, meetings, work or from getting things needed for daily living? No 12/08/2022 Utilities Answer Date Recorded In the past 12 months, has t he electric, gas, oil or water company threatened to shut off services in your home? No 12/08/2022 Depression Answer Date Recorded Patient Health Questionnaire-2 Score 2 09/29/2022 Sex and Gender Information Value Date Recorded Sex Assigned at Male 12/20/2021 10:18 AM EDT Legal Sex Male 10:18 AM EDT Gender Identity Male 12/20/2021 10:18 AM EDT Sexual Orientation Straight 07/21/2023 4: 52 PM EDT documented as of this encounter Plan of Treatment Not on file documented as of this encounter Visit Diagnoses Diagnosis Chronic obstructive pulmonary disease, unspecified COPD type (CMS/HCC) (HCC) documented in this encounter Additional Health Concerns Assessment Noted Time PHQ-9 Depression Total Score: 8 09/30/19 23 10:18 AM EDT documented as of this encounter Care Teams Mechanical Maintenance Supervisor Relationship Specialty Start Date End Date Rosaura Queen MD [address] [place] [phone] PCP - General Internal Medicine 12/30/24 documented as of this encounter
--- OUTSIDE RECORDS SUMMARY | 2025-01-23 19:40 | XMS_ITS | Patient Health Record ---
Author Organization [facility] [place] liance Address [address] [place] [address] Care Team Providers Care Chimney Builder Brick Name Role Phone Rosaura Queen Primary Care Provider Clau Nika Garvey Unavailable [phone] Clinical, Operations Unavailable Unavailable Ksenia Smitha Unavailable [phone] Charity Clement Unavailable [phone] Allergies Allergen (clinical drug ingredient) Drug/Non Drug Allergy documented on EMR Reaction Allergy Type Onset Date Status angiotensin-convert ing enzyme inhibitor (FN) VICKY inhibitors (uncoded) Hyperkalemia, ARF Allergy Active Substance with angiotensin II receptor antagonist mechanism of action (substance) ARBs (uncoded) Hyperkalemia, ARF Allergy Active metformin Metformin (uncoded) ARF Allergy Active dulaglutide trulicity (uncoded) vomitting Allergy Active Reason For Referral No Information Medications Medication SIG (Take, Route, Frequency, Duration) Notes Start Date End Date Status NovoLOG FlexPen 100 UNIT/ML Novolog sliding scale Subcutaneous three times daily before meals. 7-19UNITS SS Active Lantus SoloStar 100 UNIT/ML 40 Units Subcutaneous at bedtime Active Incruse Ellipta 62.5 MCG/INH 1 puff Inhalation Once a day Active guaiFENesin 100 MG/5ML 10 mL as needed Orally every 4 hrs 5 Not-Taking Cefpodoxime Proxetil 200 MG 1 tablet with food Orally every 12 hrs 5 Not-Taking predniSONE 10 MG (48) as directed Orally Not-Takin g Dexlansoprazole 60 MG 1 capsule Orally Once a day Not-Taking Baqsimi Two Pack 3 MG/DOSE as directed Nasally; Duration: 30 days as needed for blood sugar less than 70 or unresponsiveness please dispense yusuf eliceo brand 5 Not-Taking Tradjenta 5 MG 1 tablet Orally Once a day Active dilTIAZem HCl ER 180 MG 1 capsule Orally Once a day Active Senna 8.6 MG 2 tabs Orally Daily Active FLUoxetine HCl 40 MG 1 capsule Orally On ce a day Active Fluticasone Propionate (Inhal) 50 MCG/BLIST 1 puff Inhalation Daily Active Vitamin D3 50 MCG (1999 UT) as directed Orally Active Lyrica 150 MG 1 capsule Orally Twice a day Not-Taking Atorvastatin Calcium 20 MG 1 tablet Orally Once a day Active Baqsimi One Pack 3 MG/DOSE as directed Nasally Member reports not taking; discontinued Not-Taking Colace 100 MG 1 capsule in the evening Orally Twice a day Active Tylenol 325 MG 2 tablets as needed Orally every 8hrs 5 Active Ipratropium-Albutero l 20-100 MCG/ACT 2 puff as needed Inhalation every 6 hrs 5 Active Vitamin B12 1000 MCG 1 tablet Orally Onc e a day Active Levothyroxine Sodium 112 MCG 1 capsule in the morning on an empty stomach Orally Once a day Active Immunizations Vaccine Route Administration Date Status Comme nts COVID-19, mRNA, LNP-S, bivalent booster, PF, 30 mcg/0.3 mL Unknown 09/29/2022 Administered Flu vaccine no Preserv 3 and > IM Intramuscular 11/03/2014 Administered Given at PCP office Flu-Influenza virus vaccine,split virus, IM Agriflu Unknown 12/26/2016 Administered INFLUENZA TRIVALENT - Do not use Unknown 01/02/2012 Pending INFLUENZA TRIVALENT - Do not use Unknown 01/25/2016 Administered Moderna COVID-19 Vaccine IM Unknown 04/03/2020 Administered Moderna COVID-19 Vaccine IM Unknown 04/30/2020 Administered Moderna COVID-19 Vaccine IM Unknown 02/01/2021 Administered Pneumococcal Unknown 09/14/2005 Pending Pneumococcal IM Intramuscular 11/20/2014 Administered Admi nistered at PCP office TD ADSORBED 7 YR (adult) Unknown 12/22/2004 Pending Tdap 7 Yrs and older Unknown 01/23/2015 Administered Zoster Unknown 12/26/2016 Administered Zoster Vac (Shingrix) Recombinant Unknown 05/18/2020 Administered Zoster Vac (Shingrix) Recombinant Unknown 07/21/2020 Administered Social History Tobacco Use: Social History Observation Description Date Details (start date - stop date) Current Smoker NA - NA Tobacco Use/Smoking Question Answer Notes Are you a current smoker How often do you smoke cigarettes? every day How many cigarettes a day do you smoke? 21-30 How soon after you wake up do you smoke your fir st cigarette? 6-30 minutes Are you interested in quitting? Not ready to kwaku t Alcohol Screen Question Answer Notes Did you have a drink containing alcohol in the p ast year? No Points 0 Interpretation Negative Section Notes: MOLDER FLOOR: Elida Florencio not present during SNV, but Pt reports she is . Surrogate: Dtr/ Susie not present either. Surrogate: Dtr/ Susie not present either. Surrogate: Dtr/ Susie not present either. MOLDER FLOOR cleaning Pts home this A M during SNV. Refuses smoking cessation. Pt cont to not have hot wate r. MOLDER FLOOR/Monica present during vis it MOLDER FLOOR/Monica present during vis it MOLDER FLOOR/Monica present during vis it MOLDER FLOOR/Monica present during vis it New girlfriend/Ilene present during visit, apartment noted to be clean, girlfriend was making Pt breakfast at beginning of visit MOLDER FLOOR/Omnica present during vis it MOLDER FLOOR/Monica not present during visit- had already left for the day MOLDER FLOOR/Monica not present during visit- had already left for the day MOLDER FLOOR/Monica not present during visit- had already left for the day New girlfriend/Ilene present during visit, apartment noted to be clean, girlfriend was making Pt breakfast at beginning of visit MOLDER FLOOR present during visit MOLDER FLOOR present during visit MOLDER FLOOR present during visit MOLDER FLOOR present during visit , lives alone. Has 3 sons and 3 daughter's living out of state. Has 24hr/wk of MOLDER FLOOR. Completed 2nd grade of school. -Smokes about 1ppd, denies; alcohol/illicit drug use. , lives alone. Has 3 sons and 3 daughter's living out of state. Has 24hr/wk of MOLDER FLOOR. Completed 2nd grade of school. -Smokes about 1ppd, denies; alcohol/illicit drug use. , lives alone. Has 3 sons and 3 daughter's - 1 dtr lives in [place] Completed 2nd grade of school. -Smokes about 1ppd, denies; alcohol/illicit drug use. , lives alone. Has 3 sons and 3 daughter's - 1 dtr lives in [place] Completed 2nd grade of school. -Smokes about 1ppd, denies; alcohol/illicit drug use. , lives alone. Has 3 sons and 3 daughter's - 1 dtr lives in [place] Completed 2nd grade of school. -Smokes about 1ppd, denies; alcohol/illicit drug use. , lives alone. Has 3 sons and 3 daughter's - 1 dtr lives in [place] Completed 2nd grade of school. -Smokes about 1ppd, denies; alcohol/illicit drug use. , lives alone. Has 3 sons and 3 daughter's - 1 dtr lives in [place] Completed 2nd grade of school. -Smokes about 1ppd, denies; alcohol/illicit drug use. , lives alone. Has 3 sons and 3 daughter's - 1 dtr lives in [place] Completed 2nd grade of school. -Smokes about 1ppd, denies; alcohol/illicit drug use. , lives alone. Has 3 sons and 3 daughter's - 1 dtr lives in [place] Completed 2nd grade of school. -Smokes about 1ppd, denies; alcohol/illicit drug use. , lives alone. Has 3 sons and 3 daughter's living out of state. Has 24hr/wk of MOLDER FLOOR. Completed 2nd grade of school. -Smokes about 1ppd, denies; alcohol/illicit drug use. , lives alone. Has 3 sons and 3 daughter's living out of state. Has 24hr/wk of MOLDER FLOOR. Completed 2nd grade of school. -Smokes about 1ppd, denies; alcohol/illicit drug use. MOLDER FLOOR present during visit Problems Problem Type SNOMED Code ICD Code Onset Dates Problem Status W/U Status Risk Notes Problem Vitamin D deficiency (66212362) Vitamin D deficiency, unspecified (E55.9) Active confirmed Problem Hypertension (28109750) Hypertension (I10) Inactive confirmed Problem Tinea unguium (075154121) Tinea unguium (B35.1) Active confirmed Problem Tobacco abuse (8557143634) Tobacco abuse (Z72.0) Inactive confirmed Problem History of fall (556163459) History of falling (Z91.81) Active confirmed Problem High risk drug monitoring status (957680110) terminal superintendent current use of opiate analgesic (Z79.891) Inactive confirmed Problem Long-term current use of insulin (103448466) terminal superintendent current use of insulin (Z79.4) Active confirmed Problem Hyperglycemia due to type 2 diabetes mellitus (995849406778128) Type 2 diabetes mellitus with hyperglycemia (E11.65) Inactive confirmed Problem Lumbar radiculopathy (362151445) Radiculopathy, lumbar region (M54.16) Inactive confirmed Problem Diabetic renal disease (172877530) Type 2 diabetes mellitus with diabetic chronic kidney disease (E11.22) Active confirmed Problem Mixed hyperlipidemia (105934747) Mixed hyperlipidemia (E78.2) Active confirmed Problem Altered mental status (633689058) Altered mental status (R41.82) Active confirmed Problem Primary generalised osteoarthritis (108678154) 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) Active confirmed Problem Chronic kidney disease stage 3 (disorder) (929741758) Chronic kidney disease, stage 3 (N18.3) Problem resolved confirmed Problem Lumbar radiculopathy (887119791) Lumbar radiculopathy, chronic (M54.16) Active confirmed Problem Hypertensive heart failure (28450534) Hypertensive heart disease with CHF (I11.0) Inactive confirmed Problem Polyneuropathy due to type 2 diabetes mellitus (148228434) 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) Active confirmed Problem Pain in wrist (13050239) Pain in left wrist (M25.532) Active confirmed Problem Hyperglycemia due to type 2 diabetes mellitus (436715899726526) Type 2 diabetes mellitus with hyperglycemia (E11.65) Active confirmed Problem Chronic kidney disease due to hypertension (714138236350807) Hypertensive kidney disease with chronic kidney disease stage III (I12.9) Active confirmed Problem Essential hypertension (45498200) Essential (primary) hypertension (I10) Inactive confirmed Problem Backache (823852372) Other dorsalgia (M54.89) Active confirmed Problem 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, 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) Active confirmed Problem Pain in limb (65381442) Pain in right toe(s) (M79.674) Active confirmed Problem Acute hypoxemic respiratory failure (005402376) Acute respiratory failure with hypoxia (J96.01) Active confirmed Problem Acquired spondylolisthesis (905585083) Spondylolysis, lumbar region (M43.06) Active confirmed Problem Pain in limb (65464757) Pain in left toe(s) (M79.675) Active confirmed Problem Late effect of fracture of spine AND/OR trunk without spinal cord lesion (3297567) Multiple fractures of ribs, right side, sequela (S22.41XS) Active confirmed Problem Late effect of fracture of spine AND/OR trunk without spinal cord lesion (1144169) Unspecified fracture of fifth lumbar vertebra, sequela (S32.059S) Active confirmed Problem Reduced mobility (5239035) Other reduced mobility (Z74.09) Active confirmed Problem Long-term current use of inhaled steroid (242495954) terminal superintendent (current) use of inhaled steroids (Z79.51) Active confirmed Problem Long-term current use of antiplatelet drug (116222939858291) snf (current) use of aspirin (Z79.82) Inactive confirmed Problem Gastroesophageal reflux disease without esophagitis (229033044) Gastroesophageal reflux disease without esophagitis (K21.9) Active confirmed Problem Chronic pain (27832809) Other chronic pain (G89.29) Active confirmed Problem Long-term current use of insulin (433247137) snf (current) use of insulin (Z79.4) Inactive confirmed Problem Chronic kidney disease (963771613) Chronic kidney disease, unspecified (N18.9) Inactive confirmed Problem Anemia in chronic kidney disease (583652860) Anemia in chronic kidney disease (D63.1) Inactive confirmed Problem COPD - Chronic obstructive pulmonary disease (31535052) Chronic obstructive pulmonary disease, unspecified COPD type (J44.9) Active confirmed Problem Cataract of eye due to diabetes mellitus type 2 (disorder) (756257309) Cataract associated with type 2 diabetes mellitus (E11.36) Active confirmed Problem Chronic obstructive pulmonary disease (67427848) Chronic obstructive pulmonary disease, unspecified (J44.9) Inactive confirmed Problem Tobacco user (118182500) Cigarette nicotine dependence, uncomplicated (F17.210) Active confirmed Problem Moderate recurrent major depression (17952201) Moderate episode of recurrent major depressive disorder (F33.1) Active confirmed Problem Anemia secondary to renal failure (327508043) Anemia secondary to renal failure (D63.1) Active confirmed Problem Drug-induced constipation (64212793) Drug induced constipation (K59.03) Active confirmed Problem Long-term current use of drug therapy (450186291) snf (current) use of oral hypoglycemic drugs (Z79.84) Active confirmed Problem Irritable bowel syndrome (55230365) Irritable bowel syndrome with both constipation and diarrhea (K58.2) Active confirmed Problem Hypertensive retinopathy (2442862) Retinopathy, hypertensive, both eyes (H35.033) Active confirmed Problem 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 associated with type 2 diabetes mellitus (E11.3312) Active confirmed Problem Moderate nonproliferative diabetic retinopathy of right eye without macular edema associated with type 2 diabetes mellitus (E11.3391) Active confirmed Problem Waldo thyroiditis (66056692) 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) Active confirmed Problem Chronic kidney disease stage 3A (disorder) (406116502) Chronic kidney disease, stage 3a (N18.31) Active confirmed Problem Chronic kidney disease stage 3 (disorder) (422400010) Stage 3 chronic kidney disease, unspecified whether stage 3a or 3b CKD (N18.30) Inactive confirmed Vital Signs Heart Rate 76 /min 02/27/2024 Temperature 98.1 degrees Fahrenheit 02/27/2024 Respiratory Rate 18 /min 02/27/2024 Height-cm 167.64 cm 03/01/2024 Oximetry 97 % 02/27/2024 Blood pressure diastolic 70 mm Hg 02/27/2024 Weight-kg 68.04 kg 03/01/2024 Height 66 in 03/01/2024 Blood pressure systolic 130 mm Hg 02/27/2024 Weight 150 lbs 03/01/2024 BMI 24.21 kg/m2 03/01/2024 Encounters Encounter Location Date Provider Diagnosis [facility] [address] [place] [address] 01/30/2024 Charity Pulchtopek Chronic kidney disea se, stage 3a N18.31 ; Type 2 diabetes mellitus with diabetic chronic kidney disease E11.22 and Tobacco abuse Z72.0 [facility] [address] [place] [address] 02/27/2024 Charity Pulchtopek Chronic kidney disea se, stage 3a N18.31 and Type 2 diabetes mellitus with hyperglycemia E11.65 [facility] (Closed) [address] [place] [address] 03/01/2024 Nika Torres Tinea unguium B35.1 ; Acquired autoimmune hypothyroidism E06.3 ; 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 associated with type 2 diabetes mellitus E11.3312 ; Cataract associated with type 2 diabetes mellitus E11.36 ; Type 2 diabetes mellitus with hyperglycemia E11.65 ; Cigarette nicotine dependence, uncomplicated F17.210 ; Other chronic pain G89.29 ; Hypertensive kidney disease with chronic kidney disease stage III I12.9 ; Irritable bowel syndrome with both constipation and diarrhea K58.2 ; Other dorsalgia M54.89 ; Lumbar radiculopathy, chronic M54.16 ; Spondylolysis, lumbar region M43.06 ; Cyst of kidney, acquired N28.1 ; Multiple fractures of ribs, right side, sequela S22.41XS ; History of falling Z91.81 and Impaired functional mobility, balance, and endurance Z74.09 [facility] [address] [place] [address] 03/01/2024 Operations Clinical Tinea unguium B35.1 ; Anemia secondary to renal failure D63.1 ; Acquired autoimmune hypothyroidism E06.3 ; Type 2 diabetes mellitus with diabetic chronic kidney disease E11.22 ; 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 associated with type 2 diabetes mellitus E11.3312 ; Moderate nonproliferative diabetic retinopathy of right eye without macular edema associated with type 2 diabetes mellitus E11.3391 ; Cataract associated with type 2 diabetes mellitus E11.36 ; Diabetes mellitus with diabetic polyneuropathy E11.42 ; Type 2 diabetes mellitus with hyperglycemia E11.65 ; Vitamin D deficiency, unspecified E55.9 ; Mixed hyperlipidemia E78.2 ; Cigarette nicotine dependence, uncomplicated F17.210 ; Moderate episode of recurrent major depressive disorder F33.1 ; Other chronic pain G89.29 ; Retinopathy, hypertensive, both eyes H35.033 ; Hypertensive kidney disease with chronic kidney disease stage III I12.9 ; Chronic obstructive pulmonary disease, unspecified COPD type J44.9 ; Gastroesophageal reflux disease without esophagitis K21.9 ; Irritable bowel syndrome with both constipation and diarrhea K58.2 ; Drug induced constipation K59.03 ; Primary generalized (osteo)arthritis M15.0 ; Spondylolysis, lumbar region M43.06 ; Lumbar radiculopathy, chronic M54.16 ; Other dorsalgia M54.89 ; Pain in right toe(s) M79.674 ; Pain in left toe(s) M79.675 ; Chronic kidney disease, stage 3a N18.31 ; Cyst of kidney, acquired N28.1 ; Multiple fractures of ribs, right side, sequela S22.41XS ; Unspecified fracture of fifth lumbar vertebra, sequela S32.059S ; Other reduced mobility Z74.09 ; terminal superintendent current use of insulin Z79.4 ; snf (current) use of inhaled steroids Z79.51 ; terminal superintendent (current) use of oral hypoglycemic drugs Z79.84 and History of falling Z91.81 [facility] (Closed) [address] [place] [address] 05/16/2024 [facility] (Closed) [address] [place] [address] [facility] Acquired autoimmune hypothyroidism E06.3 ; Anemia secondary to renal failure D63.1 ; Cataract associated with type 2 diabetes mellitus E11.36 ; Chronic kidney disease, stage 3a N18.31 ; Chronic obstructive pulmonary disease, unspecified COPD type J44.9 ; Cigarette nicotine dependence, uncomplicated F17.210 ; Cyst of kidney, acquired N28.1 ; Diabetes mellitus with diabetic polyneuropathy E11.42 ; Drug induced constipation K59.03 ; Gastroesophageal reflux disease without esophagitis K21.9 ; History of falling Z91.81 ; Hypertensive kidney disease with chronic kidney disease stage III I12.9 ; Irritable bowel syndrome with both constipation and diarrhea K58.2 ; snf (current) use of inhaled steroids Z79.51 ; terminal superintendent (current) use of oral hypoglycemic drugs Z79.84 ; terminal superintendent current use of insulin Z79.4 ; Lumbar radiculopathy, chronic M54.16 ; Mixed hyperlipidemia E78.2 ; Moderate episode of recurrent major depressive disorder F33.1 ; 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 associated with type 2 diabetes mellitus E11.3312 ; Moderate nonproliferative diabetic retinopathy of right eye without macular edema associated with type 2 diabetes mellitus E11.3391 ; Multiple fractures of ribs, right side, sequela S22.41XS ; Other chronic pain G89.29 ; Other dorsalgia M54.89 ; Other reduced mobility Z74.09 ; Pain in left toe(s) M79.675 ; Pain in right toe(s) M79.674 ; Primary generalized (osteo)arthritis M15.0 ; Retinopathy, hypertensive, both eyes H35.033 ; Spondylolysis, lumbar region M43.06 ; Tinea unguium B35.1 ; Type 2 diabetes mellitus with diabetic chronic kidney disease E11.22 ; Type 2 diabetes mellitus with hyperglycemia E11.65 ; Unspecified fracture of fifth lumbar vertebra, sequela S32.059S ; Vitamin D deficiency, unspecified E55.9 ; Pain in left wrist M25.532 ; Altered mental status R41.82 and Acute respiratory failure with hypoxia J96.01 [facility] [address] [place] [address] 01/31/2024 Operations Clinical [facility] [address] [place] [address] 04/22/2024 Charity Pulchtopek [facility] [address] [place] [address] 04/23/2024 Charity Pulchtopek [facility] [address] [place] [address] 05/15/2024 Charity Pulchtopek [facility] [address] [place] [address] 05/27/2024 Charity Pulchtopek [facility] [address] [place] [address] 05/28/2024 Charity Pulchtopek [facility] [address] [place] [address] 05/28/2024 Charity Pulchtopek [facility] (Closed) [address] [place] [address] 07/23/2024 Erendira Smith Assessments Encounter Date Diagnosis (ICD Code) Assessment Notes Treatment Notes Treatment Clinical Notes Section Notes 03/01/2024 Tinea unguium (ICD-10 - B35.1) 03/01/2024 Tinea unguium (ICD-10 - B35.1) Member is an 83 y/o male with PMH significant for but not limited to dorsalgia, reduced mobility, primary OA, acquired autoimmune hypothyroidism, anemia in CKD, CKD3a, COPD, DM with DM polyneuropathy, HTN, hx falls, GERD, IBS with constipation and diarrhea, lumbar radiculopathy and other chronic pain. Member presents with functional deficits in the ADL areas of ambulation, repositioning, transfers, medication management, bathing, grooming, self feeding, toileting and dressing/undres sing. For IADL's, member requires assistance with laundry, shopping, housekeeping, meal prep and transportation. Member requires this assistance secondary to knee pain, back pain, abdominal pain, hand pain, reported hand tremors, SOB with task performance, and impaired ability to bend/lift/carry . MOLDER FLOOR initial assessment completed. Please refer to Desi's FA and JENNIFER's CLERICAL ASSISTANT in GC. 08/12/2024 Acquired autoimmune hypothyroidism (ICD-10 - E06.3) 01/30/2024 Chronic kidney disease, stage 3a (ICD-10 - N18.31) Denies symptoms of concern. Unclear staging at this time. Tells me that he has never seen a kidney doctor. Will request records from PCP. 02/27/2024 Chronic kidney disease, stage 3a (ICD-10 - N18.31) Denies new symptoms. He has not seen his jewelry bearing maker, (Dr Geovani Khanna at [facility] phone number [phone]) in well over a year. I had sent a message to navigator to assist in making a follow up appointment - received response Unable to make the appointment due to the member cancelling in June and no showed an appointment in August. Member needs to call the office directly to reschedule . Patient informed. Gave patient number to contact office himself or with MOLDER FLOOR assistance. He is overdue for labs. I have ordered these today. 02/27/2024 Type 2 diabetes mellitus with hyperglycemia (ICD-10 - E11.65) Reports average blood glucose of around 120 . He again is very hesistant when I ask him to see his glucometer or medications, they are upstairs and I don't want to get them right now . He has not seen his junior project manager or PCP in over a year. I did outreach to navigator who assisted him in making appointments for last month (January 2024). He no showed both of these appointments. He tells me that he was unable to attend appointments due to [facility] not showing up and not bringing him (he does not drive). Message sent to memory care program resident for f/u re: MOLDER FLOOR reliability. 01/30/2024 Type 2 diabetes mellitus with diabetic chronic kidney disease (ICD-10 - E11.22) Last A1C I can find was 9.1% at a [facility] appointment in December of 2022. He is unsure if he has seen any providers since then. I do not have a kit available to me today to recheck A1C. Will plan to check at our next visit if restocked in office by then. He tells me that he checks his blood glucose 4x/day and his readings are usually regular . He does not have his glucometer (or medications, allegedly) available for review today. Again, his affect is quite guarded when discussing health conditions. 08/12/2024 Anemia secondary to renal failure (ICD-10 - D63.1) 03/01/2024 Acquired autoimmune hypothyroidism (ICD-10 - E06.3) Member is an 83 y/o male with PMH significant for but not limited to dorsalgia, reduced mobility, primary OA, acquired autoimmune hypothyroidism, anemia in CKD, CKD3a, COPD, DM with DM polyneuropathy, HTN, hx falls, GERD, IBS with constipation and diarrhea, lumbar radiculopathy and other chronic pain. Member presents with functional deficits in the ADL areas of ambulation, repositioning, transfers, medication management, bathing, grooming, self feeding, toileting and dressing/undres sing. For IADL's, member requires assistance with laundry, shopping, housekeeping, meal prep and transportation. Member requires this assistance secondary to knee pain, back pain, abdominal pain, hand pain, reported hand tremors, SOB with task performance, and impaired ability to bend/lift/carry . MOLDER FLOOR initial assessment completed. Please refer to Desi's FA and JENNIFER's CLERICAL ASSISTANT in GC. 03/01/2024 Anemia secondary to renal failure (ICD-10 - D63.1) 03/01/2024 Acquired autoimmune hypothyroidism (ICD-10 - E06.3) 03/01/2024 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 associated with type 2 diabetes mellitus (ICD-10 - E11.3312) Member is an 83 y/o male with PMH significant for but not limited to dorsalgia, reduced mobility, primary OA, acquired autoimmune hypothyroidism, anemia in CKD, CKD3a, COPD, DM with DM polyneuropathy, HTN, hx falls, GERD, IBS with constipation and diarrhea, lumbar radiculopathy and other chronic pain. Member presents with functional deficits in the ADL areas of ambulation, repositioning, transfers, medication management, bathing, grooming, self feeding, toileting and dressing/undres sing. For IADL's, member requires assistance with laundry, shopping, housekeeping, meal prep and transportation. Member requires this assistance secondary to knee pain, back pain, abdominal pain, hand pain, reported hand tremors, SOB with task performance, and impaired ability to bend/lift/carry . MOLDER FLOOR initial assessment completed. Please refer to Desi's FA and JENNIFER's CLERICAL ASSISTANT in GC. 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 Counseled regarding critical nature of smoking cessation. States that he is not ready to quit at present. Discussed different treatment modalities related to smoking cessation. Again stated he is not ready to consider quitting. 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 Member presents with functional deficits in the ADL areas of ambulation, repositioning, transfers, medication management, bathing, grooming, self feeding, toileting and dressing/undres sing. For IADL's, member requires assistance with laundry, shopping, housekeeping, meal prep and transportation. Member requires this assistance secondary to knee pain, back pain, abdominal pain, hand pain, reported hand tremors, SOB with task performance, and impaired ability to bend/lift/carry . MOLDER FLOOR initial assessment completed. Please refer to Desi's FA and OTR's CLERICAL ASSISTANT in GC. 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 Member presents with functional deficits in the ADL areas of ambulation, repositioning, transfers, medication management, bathing, grooming, self feeding, toileting and dressing/undres sing. For IADL's, member requires assistance with laundry, shopping, housekeeping, meal prep and transportation. Member requires this assistance secondary to knee pain, back pain, abdominal pain, hand pain, reported hand tremors, SOB with task performance, and impaired ability to bend/lift/carry . MOLDER FLOOR initial assessment completed. Please refer to Desi's FA and OTR's CLERICAL ASSISTANT in . 08/12/2024 Chronic obstructive pulmonary disease, unspecified COPD type (ICD-10 - J44.9) 08/12/2024 Cigarette nicotine dependence, uncomplicated (ICD-10 - F17.210) 03/01/2024 Cigarette nicotine dependence, uncomplicated (ICD-10 - F17.210) Member is an 83 y/o male with PMH significant for but not limited to dorsalgia, reduced mobility, primary OA, acquired autoimmune hypothyroidism, anemia in CKD, CKD3a, COPD, DM with DM polyneuropathy, HTN, hx falls, GERD, IBS with constipation and diarrhea, lumbar radiculopathy and other chronic pain. Member presents with functional deficits in the ADL areas of ambulation, repositioning, transfers, medication management, bathing, grooming, self feeding, toileting and dressing/undres sing. For IADL's, member requires assistance with laundry, shopping, housekeeping, meal prep and transportation. Member requires this assistance secondary to knee pain, back pain, abdominal pain, hand pain, reported hand tremors, SOB with task performance, and impaired ability to bend/lift/carry . MOLDER FLOOR initial assessment completed. Please refer to Desi's FA and DADAR's CLERICAL ASSISTANT in GC. 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 Member presents with functional deficits in the ADL areas of ambulation, repositioning, transfers, medication management, bathing, grooming, self feeding, toileting and dressing/undres sing. For IADL's, member requires assistance with laundry, shopping, housekeeping, meal prep and transportation. Member requires this assistance secondary to knee pain, back pain, abdominal pain, hand pain, reported hand tremors, SOB with task performance, and impaired ability to bend/lift/carry . MOLDER FLOOR initial assessment completed. Please refer to Desi's FA and OTR's CLERICAL ASSISTANT in GC. 08/12/2024 Cyst of kidney, acquired (ICD-10 - N28.1) 08/12/2024 Diabetes mellitus with diabetic polyneuropathy (ICD-10 - E11.42) 03/01/2024 Hypertensive kidney disease with chronic kidney disease stage III (ICD-10 - I12.9) Member is an 83 y/o male with PMH significant for but not limited to dorsalgia, reduced mobility, primary OA, acquired autoimmune hypothyroidism, anemia in CKD, CKD3a, COPD, DM with DM polyneuropathy, HTN, hx falls, GERD, IBS with constipation and diarrhea, lumbar radiculopathy and other chronic pain. Member presents with functional deficits in the ADL areas of ambulation, repositioning, transfers, medication management, bathing, grooming, self feeding, toileting and dressing/undres sing. For IADL's, member requires assistance with laundry, shopping, housekeeping, meal prep and transportation. Member requires this assistance secondary to knee pain, back pain, abdominal pain, hand pain, reported hand tremors, SOB with task performance, and impaired ability to bend/lift/carry . MOLDER FLOOR initial assessment completed. Please refer to Desi's FA and OTR's CLERICAL ASSISTANT in GC. 03/01/2024 Diabetes mellitus with diabetic polyneuropathy (ICD-10 - E11.42) 03/01/2024 Type 2 diabetes mellitus with hyperglycemia (ICD-10 - E11.65) 03/01/2024 Irritable bowel syndrome with both constipation and diarrhea (ICD-10 - K58.2) Member is an 83 y/o male with PMH significant for but not limited to dorsalgia, reduced mobility, primary OA, acquired autoimmune hypothyroidism, anemia in CKD, CKD3a, COPD, DM with DM polyneuropathy, HTN, hx falls, GERD, IBS with constipation and diarrhea, lumbar radiculopathy and other chronic pain. Member presents with functional deficits in the ADL areas of ambulation, repositioning, transfers, medication management, bathing, grooming, self feeding, toileting and dressing/undres sing. For IADL's, member requires assistance with laundry, shopping, housekeeping, meal prep and transportation. Member requires this assistance secondary to knee pain, back pain, abdominal pain, hand pain, reported hand tremors, SOB with task performance, and impaired ability to bend/lift/carry . MOLDER FLOOR initial assessment completed. Please refer to Desi's FA and DADAR's CLERICAL ASSISTANT in GC. 08/12/2024 Drug induced constipation (ICD-10 - K59.03) 08/12/2024 Gastroesophageal reflux disease without esophagitis (ICD-10 - K21.9) 03/01/2024 Other dorsalgia (ICD-10 - M54.89) Member is an 83 y/o male with PMH significant for but not limited to dorsalgia, reduced mobility, primary OA, acquired autoimmune hypothyroidism, anemia in CKD, CKD3a, COPD, DM with DM polyneuropathy, HTN, hx falls, GERD, IBS with constipation and diarrhea, lumbar radiculopathy and other chronic pain. Member presents with functional deficits in the ADL areas of ambulation, repositioning, transfers, medication management, bathing, grooming, self feeding, toileting and dressing/undres sing. For IADL's, member requires assistance with laundry, shopping, housekeeping, meal prep and transportation. Member requires this assistance secondary to knee pain, back pain, abdominal pain, hand pain, reported hand tremors, SOB with task performance, and impaired ability to bend/lift/carry . MOLDER FLOOR initial assessment completed. Please refer to Desi's FA and OTR's CLERICAL ASSISTANT in GC. 03/01/2024 Vitamin D deficiency, unspecified (ICD-10 - E55.9) 03/01/2024 Mixed hyperlipidemia (ICD-10 - E78.2) 03/01/2024 Lumbar radiculopathy, chronic (ICD-10 - M54.16) Member is an 83 y/o male with PMH significant for but not limited to dorsalgia, reduced mobility, primary OA, acquired autoimmune hypothyroidism, anemia in CKD, CKD3a, COPD, DM with DM polyneuropathy, HTN, hx falls, GERD, IBS with constipation and diarrhea, lumbar radiculopathy and other chronic pain. Member presents with functional deficits in the ADL areas of ambulation, repositioning, transfers, medication management, bathing, grooming, self feeding, toileting and dressing/undres sing. For IADL's, member requires assistance with laundry, shopping, housekeeping, meal prep and transportation. Member requires this assistance secondary to knee pain, back pain, abdominal pain, hand pain, reported hand tremors, SOB with task performance, and impaired ability to bend/lift/carry . MOLDER FLOOR initial assessment completed. Please refer to Desi's FA and OTR's CLERICAL ASSISTANT in GC. 08/12/2024 History of falling (ICD-10 - Z91.81) 08/12/2024 Hypertensive kidney disease with chronic kidney disease stage III (ICD-10 - I12.9) 03/01/2024 Spondylolysis, lumbar region (ICD-10 - M43.06) Member is an 83 y/o male with PMH significant for but not limited to dorsalgia, reduced mobility, primary OA, acquired autoimmune hypothyroidism, anemia in CKD, CKD3a, COPD, DM with DM polyneuropathy, HTN, hx falls, GERD, IBS with constipation and diarrhea, lumbar radiculopathy and other chronic pain. Member presents with functional deficits in the ADL areas of ambulation, repositioning, transfers, medication management, bathing, grooming, self feeding, toileting and dressing/undres sing. For IADL's, member requires assistance with laundry, shopping, housekeeping, meal prep and transportation. Member requires this assistance secondary to knee pain, back pain, abdominal pain, hand pain, reported hand tremors, SOB with task performance, and impaired ability to bend/lift/carry . MOLDER FLOOR initial assessment completed. Please refer to Desi's FA and OTR's CLERICAL ASSISTANT in GC. 03/01/2024 Cigarette nicotine dependence, uncomplicated (ICD-10 - F17.210) 03/01/2024 Moderate episode of recurrent major depressive disorder (ICD-10 - F33.1) 03/01/2024 Cyst of kidney, acquired (ICD-10 - N28.1) Member is an 83 y/o male with PMH significant for but not limited to dorsalgia, reduced mobility, primary OA, acquired autoimmune hypothyroidism, anemia in CKD, CKD3a, COPD, DM with DM polyneuropathy, HTN, hx falls, GERD, IBS with constipation and diarrhea, lumbar radiculopathy and other chronic pain. Member presents with functional deficits in the ADL areas of ambulation, repositioning, transfers, medication management, bathing, grooming, self feeding, toileting and dressing/undres sing. For IADL's, member requires assistance with laundry, shopping, housekeeping, meal prep and transportation. Member requires this assistance secondary to knee pain, back pain, abdominal pain, hand pain, reported hand tremors, SOB with task performance, and impaired ability to bend/lift/carry . MOLDER FLOOR initial assessment completed. Please refer to Desi's FA and OTR's CLERICAL ASSISTANT in GC. 08/12/2024 Irritable bowel syndrome with both constipation and diarrhea (ICD-10 - K58.2) 08/12/2024 snf (current) use of inhaled steroids (ICD-10 - Z79.51) 03/01/2024 Multiple fractures of ribs, right side, sequela (ICD-10 - S22.41XS) Member is an 83 y/o male with PMH significant for but not limited to dorsalgia, reduced mobility, primary OA, acquired autoimmune hypothyroidism, anemia in CKD, CKD3a, COPD, DM with DM polyneuropathy, HTN, hx falls, GERD, IBS with constipation and diarrhea, lumbar radiculopathy and other chronic pain. Member presents with functional deficits in the ADL areas of ambulation, repositioning, transfers, medication management, bathing, grooming, self feeding, toileting and dressing/undres sing. For IADL's, member requires assistance with laundry, shopping, housekeeping, meal prep and transportation. Member requires this assistance secondary to knee pain, back pain, abdominal pain, hand pain, reported hand tremors, SOB with task performance, and impaired ability to bend/lift/carry . MOLDER FLOOR initial assessment completed. Please refer to Desi's FA and JENNIFER's CLERICAL ASSISTANT in . 03/01/2024 Other chronic pain (ICD-10 - G89.29) 03/01/2024 Retinopathy, hypertensive, both eyes (ICD-10 - H35.033) 03/01/2024 History of falling (ICD-10 - Z91.81) Member is an 83 y/o male with PMH significant for but not limited to dorsalgia, reduced mobility, primary OA, acquired autoimmune hypothyroidism, anemia in CKD, CKD3a, COPD, DM with DM polyneuropathy, HTN, hx falls, GERD, IBS with constipation and diarrhea, lumbar radiculopathy and other chronic pain. Member presents with functional deficits in the ADL areas of ambulation, repositioning, transfers, medication management, bathing, grooming, self feeding, toileting and dressing/undres sing. For IADL's, member requires assistance with laundry, shopping, housekeeping, meal prep and transportation. Member requires this assistance secondary to knee pain, back pain, abdominal pain, hand pain, reported hand tremors, SOB with task performance, and impaired ability to bend/lift/carry . MOLDER FLOOR initial assessment completed. Please refer to Desi's FA and JENNIFER's CLERICAL ASSISTANT in . 08/12/2024 snf (current) use of oral hypoglycemic drugs (ICD-10 - Z79.84) 08/12/2024 terminal superintendent current use of insulin (ICD-10 - Z79.4) 03/01/2024 Impaired functional mobility, balance, and endurance (ICD-10 - Z74.09) Member is an 83 y/o male with PMH significant for but not limited to dorsalgia, reduced mobility, primary OA, acquired autoimmune hypothyroidism, anemia in CKD, CKD3a, COPD, DM with DM polyneuropathy, HTN, hx falls, GERD, IBS with constipation and diarrhea, lumbar radiculopathy and other chronic pain. Member presents with functional deficits in the ADL areas of ambulation, repositioning, transfers, medication management, bathing, grooming, self feeding, toileting and dressing/undres sing. For IADL's, member requires assistance with laundry, shopping, housekeeping, meal prep and transportation. Member requires this assistance secondary to knee pain, back pain, abdominal pain, hand pain, reported hand tremors, SOB with task performance, and impaired ability to bend/lift/carry . MOLDER FLOOR initial assessment completed. Please refer to Desi's FA and JENNIFER's CLERICAL ASSISTANT in GC. 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 associated with type 2 diabetes mellitus (ICD-10 - E11.3312) 03/01/2024 Drug induced constipation (ICD-10 - K59.03) 03/01/2024 Primary generalized (osteo)arthritis (ICD-10 - M15.0) 08/12/2024 Moderate nonproliferative diabetic retinopathy of right eye without macular edema associated with type 2 diabetes mellitus (ICD-10 - E11.3391) 08/12/2024 Multiple fractures of ribs, right side, sequela (ICD-10 - S22.41XS) 03/01/2024 Spondylolysis, lumbar region (ICD-10 - M43.06) 03/01/2024 Lumbar radiculopathy, chronic (ICD-10 - M54.16) 08/12/2024 Other chronic pain (ICD-10 - G89.29) 08/12/2024 Other dorsalgia (ICD-10 - M54.89) 03/01/2024 Other dorsalgia (ICD-10 - M54.89) 03/01/2024 Pain in right toe(s) (ICD-10 - M79.674) 08/12/2024 Other reduced mobility (ICD-10 - Z74.09) 08/12/2024 Pain in left toe(s) (ICD-10 - M79.675) 03/01/2024 Pain in left toe(s) (ICD-10 - M79.675) 03/01/2024 Chronic kidney disease, stage 3a (ICD-10 - N18.31) 08/12/2024 Pain in right toe(s) (ICD-10 - M79.674) 08/12/2024 Primary generalized (osteo)arthritis (ICD-10 - M15.0) 03/01/2024 Cyst of kidney, acquired (ICD-10 - N28.1) 03/01/2024 Multiple fractures of ribs, right side, sequela (ICD-10 - S22.41XS) 08/12/2024 Retinopathy, hypertensive, both eyes (ICD-10 - H35.033) 08/12/2024 Spondylolysis, lumbar region (ICD-10 - M43.06) 03/01/2024 Unspecified fracture of fifth lumbar vertebra, sequela (ICD-10 - S32.059S) 03/01/2024 Other reduced mobility (ICD-10 - Z74.09) 08/12/2024 Tinea unguium (ICD-10 - B35.1) 08/12/2024 Type 2 diabetes mellitus with diabetic chronic kidney disease (ICD-10 - E11.22) 03/01/2024 snf current use of insulin (ICD-10 - Z79.4) 03/01/2024 terminal superintendent (current) use of inhaled steroids (ICD-10 - Z79.51) 08/12/2024 Type 2 diabetes mellitus with hyperglycemia (ICD-10 - E11.65) 08/12/2024 Unspecified fracture of fifth lumbar vertebra, sequela (ICD-10 - S32.059S) 03/01/2024 snf (current) use of oral hypoglycemic drugs (ICD-10 - Z79.84) 03/01/2024 History of falling (ICD-10 - Z91.81) 08/12/2024 Vitamin D deficiency, unspecified (ICD-10 - E55.9) 08/12/2024 Pain in left wrist (ICD-10 - M25.532) 08/12/2024 Altered mental status (ICD-10 - R41.82) 08/12/2024 Acute respiratory failure with hypoxia (ICD-10 - J96.01) 05/16/2024 Alert, pleasant, in no acute distress. Plan Of Treatment Pending Test Test Name Order Date Hemoglobin [id number] 02/27/2024 Albumin/Creatinine Ratio,[id number] 02/27/2024 Insurance Providers Payer Name Payer Address Payer Phone Subscriber Number Group Number Insured Name Patient Relationship to Insured Coverage Start Date Coverage End Date [facility] [employer] ([id number]) [id number] [place] [phone] [id number] Tena Causey Self - patient is the insured 2 9 Medical (General) History Medical History History ICD Code COPD Lumbago DMII with care home insulin CKD Stage III GERD Hyperlipidemia Depression Nocturia R35.1 Self-care deficit for medication adminis tration 799.59 Shoulder pain, left M25.512 Caffeine dependence Dermatitis Personal history of fall Background retinopathy due to secondary diabetes mellitus Depression Lesion of soft palate Tobacco dependence Chronic prescription opiate use Forgetfulness Chronic kidney disease, stage 3 (resolve d 07/12/2019) undefined Surgical History Surgery Date(Month/Year) Cataract Surgery to L eye 11/19/12 Hospitalization History Reason Date(Month/Year) [facility]: pneumonia 06/11- 06/14/2019 denies last 6 months 01/07 Acute Renal Injury secondary to poor fluid intake and ACEI/metformin with underlying renal disease.
--- OUTSIDE RECORDS SUMMARY | 2025-01-23 19:40 | XMS_ITS | Encounter Summary ---
Author Organization [employer] Address [address] [place] [address] Care Team Providers Care Dairy Cattle Farm Manager Name Role Phone Rosaura Quene MD Primary Care Provide r Reason for Visit * Reason Onset Date Comments chart prep 01/22/2025 Encounter Details Date Type Department Care Team ([facility] st Contact Info) Description 01/22/2025 Telephone [facility] [address] [place], [place] [phone] Rosaura Queen MD [address] [place] [address] chart prep Social History Tobacco Use Types Packs/Day Years Used Date Smoking Tobacco: Every Day Cigarettes Smokeless Tobacco: Never Alcohol Use Standard Drinks/Week Comments Not Currently 0 (1 standard drink = 0.6 oz pur e alcohol) Depression Answer Date Recorded Patient Health Questionnaire-9 Score 8 09/29/2022 Housing Stability Answer Date Recorded What is your housing situation today? I have page [place] 11/30/[address] you li [...] encounter Miscellaneous Notes * Telephone Encounter - Dwayne Grover MA - 01/22/2025 3:13 PM EST Chart Prep Labs: done Images: done Referrals: not applicable Vaccines due: Covid, Flu, and RSV Screenings: eye exam and foot exam Overdue care gaps: Glucose, SDOH, PHQ-9, and AILIN-7 documented in this encounter Plan of Treatment [...] Care Plan Patient has chronic kidney disease Dwayne Knutson MA Patient has chronic kidney disease Care Plan Patient has chronic kidney disease Dwayne Knutson MA documented as of this encounter Visit Diagnoses [...] 01/22/2025 Patient has chronic kidney disease 01/22/2025 Assessment Noted Time PHQ-9 Depression Total Score: 8 09/30/19 23 10:18 AM EDT documented as of this encounter Care Teams Dairy Cattle Farm Manager Relationship Specialty Start Date End Date Rosaura Queen MD [address] [place] [id number] PCP - General Internal Medicine 12/30/24 documented as of this encounter
[2025-01-24 04:49] LABS: HIV Num 1 0.04 S/CO (0.00-0.99); ~HepC Num1 2.24 S/CO (0.00-0.79); ~Hepatitis C Antibody Reactive (Nonreactive)
== END 2025-01-23 14:09 | disposition home or self-care (01) ==
LOC: HO.HHCL 14:08
PROVIDERS: Registered Nurse; PCP Internal Medicine; Visit Provider Internal Medicine
DX: Z11.4 Encounter for screening for human immunodeficiency virus [HIV] (principal); Z13.21 Encounter for screening for nutritional disorder; E11.22 Type 2 diabetes mellitus with diabetic chronic kidney disease; Z79.4 Long term (current) use of insulin
CPT/HCPCS: 36415; 80053; 80061; 82306; 82607; 84439; 84443; 85025; 86803; 87389; 87522